=== PATIENT | male | born 1950 | race Caucasian/White ===

== ENCOUNTER 2022-12-17 18:07 | Emergency (ER) | payer OTHER, MEDICARE, SELFPAY ==
--- NOTE | ~2022-12-17 | CT_ITS ---
EXAMINATION: CT HEAD WITHOUT CONTRAST CLINICAL INFORMATION: Headache status-post injury. COMPARISON: None available. TECHNIQUE: Contiguous axial imaging was performed from the skull base to vertex without intravenous administration of contrast. Multiplanar reformatted images are submitted. This CT examination was performed using dose optimization techniques as appropriate, variously including the following: *Automated exposure control *Adjustment of mA and/or kV according to patient size (this includes techniques or standardized protocols for targeted exams where dose is matched to indication/reason for exam; i.e. extremities or head) *Use of iterative reconstruction technique DLP: 1664 mGy-cm (head and cervical spine) FINDINGS: There is no acute intracranial hemorrhage or evidence of territorial infarction. No abnormal mass effect or midline shift is seen. Cantor to white matter differentiation is well preserved. There is no abnormal attenuation within the brain parenchyma. The ventricles are normal in size. There is generalized sulcal widening, commensurate with advanced age. No extra-axial fluid collections are identified. The calvarium and scalp soft tissues are normal. The middle ear cavities and right mastoid air cells are clear. There is fluid within one of the lateral left mastoid air cells. There is opacification of the right mastoid sinus. There has been a prior right median antrostomy. There is hyperostosis of the right maxillary normal lopez, consistent with chronic inflammatory change. There is mild mucosal thickening of the left sphenoid sinus, which shows similar hyperostosis. CT/CT cervical spine wo IV con IMPRESSION: 1. No acute intracranial pathology. 2. There is chronic sinusitis. EXAMINATION: CT CERVICAL SPINE WITHOUT CONTRAST CLINICAL INFORMATION: Pain status-post fall. COMPARISON: None available. TECHNIQUE: Contiguous axial imaging was performed through the cervical spine without intravenous administration of contrast. Multiplanar reformatted images are submitted. This CT examination was performed using dose optimization techniques as appropriate, variously including the following: *Automated exposure control *Adjustment of mA and/or kV according to patient size (this includes techniques or standardized protocols for targeted exams where dose is matched to indication/reason for exam; i.e. extremities or head) *Use of iterative reconstruction technique DLP: As above FINDINGS: Vertebral body heights and alignment are normal. There is mild posterior disc space narrowing at C4-C5. There is marked disc space narrowing at C6-C7. The remaining disc spaces are well-maintained. No acute fracture or spondylolisthesis is seen. There is multi-level cervical spondylosis. The posterior elements are intact. There is multi-level cervical facet arthropathy. There is no prevertebral soft tissue swelling. The dens is intact. There are arthritic changes of the atlantoaxial joint. The bilateral lung apices are clear. IMPRESSION: 1. There is mild degenerative disc disease at C4-C5, and marked degenerative disc disease is seen at C6-C7. 2. There is multi-level cervical spondylosis and facet arthropathy. Fleischner guidelines were followed.
--- NOTE | ~2022-12-17 | CT_ITS ---
EXAMINATION: CT FACIAL BONES WITHOUT CONTRAST CLINICAL INFORMATION: Right facial pain status-post injury. COMPARISON: None available. TECHNIQUE: Without the addition of intravenous contrast, multiple contiguous multidetector transaxial sections are obtained through the facial bones. Multiplanar reformatted images are submitted. This CT examination was performed using dose optimization techniques as appropriate, variously including the following: *Automated exposure control *Adjustment of mA and/or kV according to patient size (this includes techniques or standardized protocols for targeted exams where dose is matched to indication/reason for exam; i.e. extremities or head) *Use of iterative reconstruction technique DLP: 1664 mGy-cm FINDINGS: The paranasal sinuses are well-developed. The frontal sinuses and bilateral ethmoid air cells appear clear. The frontoethmoidal recesses are patent. The right maxillary sinus is fully opacified. There is hyperostosis of the right maxillary sinus wall, suggesting chronic inflammation, and there has been a prior right median antrostomy. There is some narrowing of the right nasal air column. The left ostiomeatal unit appears patent (21:81), and the left nasal air column is patent. There is mild mucosal thickening of the left sphenoid sinus chamber, with widening of the sphenoethmoidal recess possibly on the basis of prior surgery. Please correlate with patient's past surgical history. There is hyperostosis of the lopez of the left sphenoid sinus, similar suggesting chronic sinusitis. No fracture is seen. The bilateral zygomas are intact. The lamina papyracea are intact. The bilateral pterygoid plates are intact. The nasal bones and the nasal septum and vomer are intact. The bilateral orbits and orbital contents are symmetric. The right mastoid air cells are clear. There is fluid within a few of the lateral left mastoid air cells. The external auditory canals are patent bilaterally. The temporomandibular joints are intact. CT/CT facial bones wo IV con IMPRESSION: 1. No acute fracture or dislocation is seen. 2. There is evidence of chronic sinusitis and postoperative intervention to the right maxillary and left sphenoid sinuses. Please correlate with the patient's past surgical history. 3. There is nonspecific fluid within a few of the lateral left mastoid air cells.
[2022-12-17 18:25] VITALS: BP 100/60; BP 83/50; PULSE 70; PULSE 81; RESP 18; TEMP 36.8; O2SAT 95; O2SAT 96; BMI 32.4
--- NOTE | 2022-12-17 18:34 | ECG_ITS ---
Test Reason : LOW BP Blood Pressure : / mmHG Vent. Rate : 079 BPM Atrial Rate : 079 BPM P-R Int : 216 ms QRS Dur : 104 ms QT Int : 398 ms P-R-T Axes : 085 016 066 degrees QTc Int : 456 ms Sinus rhythm with 1st degree A-V block Otherwise normal ECG No previous ECGs available Referred By: Veronica An Electronically Signed By:LAURIE MAURER
--- NOTE | 2022-12-17 18:47 | ED_ITS ---
HPI - Fall General Chief Complaint: Fall Stated Complaint: mowing lawn, lost balance & fell, skin tears L arm Time Seen by Provider: 12/17/22 18:36 Source: patient and RN notes reviewed Mode of arrival: ambulatory Limitations: no limitations History of Present Illness HPI Narrative: This is a 72-year-old male, with a past medical history of insulin dependent diabetes, hypertension, high cholesterol, presenting to the emergency department with complaints dizziness after striking his head on the stump today. Patient states that he was walking in his lawn and fell on uneven ground and fell forward. He struck his right side of his face on a stump. He denies loss of consciousness. He endorses dizziness. Reporting some mild left arm pain with abrasions noted. He called the ambulance where his point of care was found to be at 60, he was given 4 g of D10. No other complaints or concerns at this time. MD complaint: fall Onset (ago): minute(s) Fall from: standing Fall witnessed: no Place fall occurred: home Loss of consciousness: none Prolonged down time: no Symptoms prior to fall: none Context: tripped/slipped Location of injury: head Associated symptoms (after fall): headache and lightheaded Related Data Allergies Allergy/AdvReac Type Severity Reaction Status Date / Time No Known Allergies Allergy Verified 12/17/22 18:28 Review of Systems 2 Review of Systems: Yes all other systems are reviewed and are negative Constitutional: Constitutional: Reports as per [facility] Social History Social History Smoked in Last 30 Days: No Advance Directives: No Advance Directives Information Provided: Yes Physical Exam 2 Vital Signs: Vital Signs: Last Vital Signs Temp 98.1 F 12/18/22 00:25 Pulse 75 12/18/22 00:36 Resp 14 12/18/22 00:25 BP 114/60 12/18/22 00:36 Pulse Ox 95 12/18/22 00:25 O2 Del Method Room Air 12/18/22 00:25 BMI result Body Mass Index 32.4 Const: General: cooperative, comfortable and no acute distress O rientation/consciousness: patient oriented x3 Limitations: no limitations HEENT: Other: Mild superficial abrasion noted to right forehead, no active bleeding. No hemotympanum noted. No facial bone tenderness Head: Yes normal to inspection, Yes normocephalic, No Rothman's sign and No palpable skull fracture Ears: hearing grossly normal bilaterally General nose exam: Normal external nose present Face and sinus: Yes normal facial exam Mouth: Normal oral and palatal mucosa present, oropharynx normal and moist mucous membranes Throat: Yes posterior oropharynx normal Eyes: General: appearance normal, both eyes and all related structures E yelids: Yes eyelids normal Conjunctivae: conjunctivae normal Sclerae: s clerae normal Pupils: Equal, round and reactive pupils present EOM: EOMs intact bilaterally Neck: Neck: Yes normal visual inspection, Yes full ROM and Yes no lymphadenopathy Lymphatic: no lymphadenopathy noted Chest: Chest palpation & inspection: normal inspection of the chest Resp: Effort & Inspection: normal respiratory effort and able to speak in complete sentences Auscultation: clear to auscultation bilaterally, no crackles, no rales, no rhonchi and no wheezes Cardio: Rate: regular rate Rhythm: regular rhythm Heart sounds: S1 normal heart sound present and S2 normal heart sound present GI: Inspection: Yes normal to inspection Skin: General skin exam: no rashes or lesions noted Trauma: no lacerations or abrasions Wounds: no wounds Neuro: General: patient oriented x3 and moves all extremities Cranial nerves: Yes Equal, round and reactive pupils present Extrem: General: Yes normal to inspection Right upper extremity: normal to inspection Left upper extremity: normal to inspection Right lower extremity: normal to inspection Left lower extremity: normal to inspection Course Reevaluation(s) Reevaluation #1: Cervical CT scan without any acute fractures. Head CT and facial CT without any acute abnormalities. Blood glucose 62 and was given juice, now 82. Given clearance of imaging, will provide patient with food as patient states he has not eaten since this morning. Time: 20:43 Reevaluation #2: Patient feeling much better, point of care glucose 164. Dizziness has improved, only feeling nauseous with a slight headache. Patient medicated with Tylenol 1 g by mouth and Zofran. Patient given strict return precautions. Patient understands and agrees with plan. Patient stable for discharge. Time: 00:53 Medications Administered Discontinued Medications Generic Name Dose Route Start Last Admin Trade Name Freq PRN Reason Stop Dose Admin Acetaminophen 975 mg 12/18/22 00:44 12/18/22 01:09 Acetaminophen 325 Mg Tablet PO 12/18/22 00:45 Not Given ONCE ONE Acetaminophen 975 mg 12/18/22 00:53 12/18/22 01:35 Acetaminophen 325 Mg Tablet PO 12/18/22 00:54 975 mg ONCE ONE Administration Bacitracin 1 appl 12/17/22 23:25 12/18/22 01:10 Bacitracin Oint 0.9 Gm Packet TOPICAL 12/17/22 23:26 1 appl ONCE ONE Administration Protocol Diphtheria/Tetanus/Acell Pertussis 0.5 ml 12/18/22 00:56 12/18/22 01:35 Diphth,Pertus(Acell),Tet Adult 0.5 Ml Syringe IM 12/18/22 00:57 0.5 ml .ONCE ONE Administration Ondansetron HCl 4 mg 12/18/22 00:44 12/18/22 01:09 Ondansetron Odt 4 Mg Tab.Rapdis TRANSLINGU 12/18/22 00:45 Not Given ONCE ONE Ondansetron HCl 4 mg 12/18/22 00:53 12/18/22 01:35 Ondansetron Odt 4 Mg Tab.Rapdis TRANSLINGU 12/18/22 00:54 4 mg ONCE ONE Administration Potassium Chloride 40 meq 12/17/22 20:44 12/17/22 21:46 Potassium Chloride Er 20 Meq Tab.Er.Prt PO 12/17/22 20:45 40 meq ONCE ONE Administration Medical Decision Making Medical Decision Making [facility] Narrative: 72-year-old male presenting to the emergency department for evaluation of headache in dizziness status post mechanical fall which occurred today. On arrival, blood pressure hypotensive at 83/50, all other vital signs within normal limits. Patient was transported here via EMS where his point of care was found to be at 60, EMS gave him 4 g of D10. POC on arrival 138. Patient reporting continued dizziness and headache, no neck pain. Patient has superficial abrasion noted to right forehead. Given dizziness and head strike, will obtain head CT and neck CT stat. Patient is neurologically intact at this time. Will reassess after receiving images. Differential Diagnosis Differential Diagnoses: The differential diagnosis associated with the presentation includes ICH, closed head injury, contusion, facial fracture Admission/Observation Consideration of admission/observation: Escalation of care including admission/observation considered Patient would have been admitted to the hospital had her work up had any findings where hospital admission was appropriate and her clinical presentation warranted hospital admission. Lab Data [facility] Lab Attestation statement: I reviewed the patient's lab results. No leukocytosis, chemistry nondiagnostic. Normocytic anemia noted 12/17/22 18:50 12/17/22 18:50 Labs: Lab Results 12/17/22 12/17/22 Range/Units 18:50 19:35 WBC 8.7 (4.8-10.8) X10*3/uL RBC 4.09 L (4.60-5.80) X10*6/uL Hgb 13.2 L (14.0-18.0) g/dl Hct 37.6 L (42.0-52.0) % MCV 91.9 (80.0-98.0) fL MCH 32.3 (27.0-33.0) pg MCHC 35.1 (31.0-36.0) g/dl RDW 13.9 (11.0-16.0) % Plt Count 117 L (160-400) X10*3/uL MPV 9.6 (9.4-12.4) fL Immature Gran % (Auto) 0.2 (0.0-0.4) % Neut % (Auto) 66.8 (45-73) % Lymph % (Auto) 19.9 L (20-40) % [place] % (Auto) 10.6 (2-11) % Eos % (Auto) 2.3 (0-4) % Baso % (Auto) 0.2 (0-2) % Lymph # (Auto) 1.7 (1.2-4.9) X10*3/uL [place] # (Auto) 0.9 (0.1-1.2) X10*3/uL Eos # (Auto) 0.2 (0.0-0.4) X10*3/uL Baso # (Auto) 0.0 (0.0-0.2) X10*3/uL Abs Immat Gran (auto) 0.02 (0.00-0.03) X10*3/uL Absolute Neuts (auto) 5.8 (2.0-8.3) x10*3/uL Absolute Nucleated RBC 0.000 (0.0-0.012) X10*3/uL Nucleated RBC % (auto) 0.0 (0.0-0.2) /100WBC Sodium 141 (135-145) mmol/L Potassium 3.0 L (3.3-5.1) mmol/L Chloride 107 (96-108) mmol/L Carbon Dioxide 26 (22-29) mmol/L Anion Gap 11 L (12-20) BUN 18 H (9-16) mg/dL Creatinine 1.40 (0.5-1.4) mg/dL Estim Creat Clear Calc 57.1 Estimated GFR 50 POC Glucose 63 (60-115) mg/dL Random Glucose 81 (60-115) mg/dL Calcium 8.7 (8.4-10.2) mg/dL Total Bilirubin 0.5 (0.0-1.0) mg/dL Direct Bilirubin 0.2 (0.0-0.5) mg/dL AST 11 (5-37) U/L ALT 13 (0-40) U/L Alkaline Phosphatase 111 (39-117) U/L Troponin I High Sens 7.5 (<3.5-35.0) ng/L Total Protein 5.9 L (6.5-8.0) g/dL Albumin 3.3 L (3.5-5.0) g/dL Radiology Impression Discussion of test interpretation with radiology: I have reviewed the radiologist's reading. Radiologist Impression: EXAMINATION: CT HEAD WITHOUT CONTRAST CLINICAL INFORMATION: Headache status-post injury. COMPARISON: None available. TECHNIQUE: Contiguous axial imaging was performed from the skull base to vertex without intravenous administration of contrast. Multiplanar reformatted images are submitted. This CT examination was performed using dose optimization techniques as appropriate, variously including the following: *Automated exposure control *Adjustment of mA and/or kV according to patient size (this includes techniques or standardized protocols for targeted exams where dose is matched to indication/reason for exam; i.e. extremities or head) *Use of iterative reconstruction technique DLP: 1664 mGy-cm (head and cervical spine) FINDINGS: There is no acute intracranial hemorrhage or evidence of territorial infarction. No abnormal mass effect or midline shift is seen. Cantor to white matter differentiation is well preserved. There is no abnormal attenuation within the brain parenchyma. The ventricles are normal in size. There is generalized sulcal widening, commensurate with advanced age. No extra-axial fluid collections are identified. The calvarium and scalp soft tissues are normal. The middle ear cavities and right mastoid air cells are clear. There is fluid within one of the lateral left mastoid air cells. There is opacification of the right mastoid sinus. There has been a prior right median antrostomy. There is hyperostosis of the right maxillary normal lopez, consistent with chronic inflammatory change. There is mild mucosal thickening of the left sphenoid sinus, which shows similar hyperostosis. CT/CT head/brain wo IV con IMPRESSION: 1. No acute intracranial pathology. 2. There is chronic sinusitis. EXAMINATION: CT CERVICAL SPINE WITHOUT CONTRAST CLINICAL INFORMATION: Pain status-post fall. COMPARISON: None available. TECHNIQUE: Contiguous axial imaging was performed through the cervical spine without intravenous administration of contrast. Multiplanar reformatted images are submitted. This CT examination was performed using dose optimization techniques as appropriate, variously including the following: *Automated exposure control *Adjustment of mA and/or kV according to patient size (this includes techniques or standardized protocols for targeted exams where dose is matched to indication/reason for exam; i.e. extremities or head) *Use of iterative reconstruction technique DLP: As above FINDINGS: Vertebral body heights and alignment are normal. There is mild posterior disc space narrowing at C4-C5. There is marked disc space narrowing at C6-C7. The remaining disc spaces are well-maintained. No acute fracture or spondylolisthesis is seen. There is multi-level cervical spondylosis. The posterior elements are intact. There is multi-level cervical facet arthropathy. There is no prevertebral soft tissue swelling. The dens is intact. There are arthritic changes of the atlantoaxial joint. The bilateral lung apices are clear. IMPRESSION: 1. There is mild degenerative disc disease at C4-C5, and marked degenerative disc disease is seen at C6-C7. 2. There is multi-level cervical spondylosis and facet arthropathy. Fleischner guidelines were followed. Dictated By: Wiliam Sorensen MD External Record Review External record reviewed: Inpatient record, Office record, Outpatient record, Prior outpatient labs, Prior outpatient radiology, Primary care record and Outside ED record Discharge Plan Discharge Clinical Impression: CHI (closed head injury), Abrasion Patient Disposition: Home, Self-Care Instructions: Head Injury (ED) Additional Instructions: Your head CT did not show any new findings. You do have arthritis seen in your neck. There were no facial bone fractures. You likely will be more sore tomorrow, please take Tylenol as needed for your pain. Rest, drink plenty of fluids, and monitor your glucose closely. You also have multiple skin tears and abrasions to your left upper arm, please allow Steri-Strips to fall off on their own. Watch for any signs of infection including but not limited to fevers, chills, or drainage. We updated your tetanus shot in the department today. If any new or worsening symptoms occur including but not limited to chest pain, shortness breast, worsening headache, numbness tingling her weakness, please return for re-evaluation. Interventions: ED Discharge Assessment Last Done: 12/18/22 02:40 Discharge Date/Time: 12/18/22 02:42
[2022-12-17 18:56] LABS: MANUAL DIFF FLAG NO
[2022-12-17 18:58] LABS: Basophils Percent Auto 0.2 % (0-2); Eosinophils Absolute Auto 0.2 X10*3/uL (0.0-0.4); Eosinophils Percent Auto 2.3 % (0-4); Hematocrit 37.6 % (42.0-52.0); Hemoglobin 13.2 g/dl (14.0-18.0); Imm Gran Abs Auto 0.02 X10*3/uL (0.00-0.03); Imm Gran Pct Auto 0.2 % (0.0-0.4); Lymphocytes Absolute Auto 1.7 X10*3/uL (1.2-4.9); Lymphocytes Percent Auto 19.9 % (20-40); Mean Corpuscular HGB Conc 35.1 g/dl (31.0-36.0); Mean Corpuscular Hemoglobin 32.3 pg (27.0-33.0); Mean Corpuscular Volume 91.9 fL (80.0-98.0); Mean Platelet Volume 9.6 fL (9.4-12.4); Monocytes Absolute Auto 0.9 X10*3/uL (0.1-1.2); Monocytes Percent Auto 10.6 % (2-11); Neutrophils Absolute Auto 5.8 x10*3/uL (2.0-8.3); Neutrophils Percent Auto 66.8 % (45-73); Platelet Count 117 X10*3/uL (160-400); Red Blood Count 4.09 X10*6/uL (4.60-5.80); Red Cell Distribution Width 13.9 % (11.0-16.0); White Blood Count 8.7 X10*3/uL (4.8-10.8)
--- NOTE | 2022-12-17 19:13 | PC.NURSE ---
Pt arrived via ambulance, reporting he tripped and fell in his yard today, hitting his head on a stump in the yard. Pt reports he takes a baby aspirin daily small abrasion noted on right side of head, and skin tears noted on Left arm, currently wrapped by EMS. Pt placed on entry level paralegal, BP still soft, 1L running of NS. Pt is a/ox4, reporting dizziness/BRIONES currently.
[2022-12-17 19:15] LABS: Alanine Aminotransferase 13 U/L (0-40); Albumin Level 3.3 g/dL (3.5-5.0); Alkaline Phosphatase 111 U/L (39-117); Anion Gap 11 (12-20); Aspartate Amino Transferase 11 U/L (5-37); Bilirubin Direct 0.2 mg/dL (0.0-0.5); Bilirubin Total 0.5 mg/dL (0.0-1.0); Blood Urea Nitrogen 18 mg/dL (9-16); Calcium 8.7 mg/dL (8.4-10.2); Carbon Dioxide 26 mmol/L (22-29); Chloride 107 mmol/L (96-108); Creatinine Clr Calc Pharmacy 57.1; Estimated Glomerular Filt Rate 50; Glucose Random 81 mg/dL (60-115); Sodium 141 mmol/L (135-145); Total Protein 5.9 g/dL (6.5-8.0)
[2022-12-17 19:22] LABS: Troponin-I High Sensitivity 7.5 ng/L (<3.5-35.0)
[2022-12-17 19:42] LABS: Glucose, Whole Blood 63 mg/dL (60-115)
--- NOTE | 2022-12-17 19:44 | PC.NURSE ---
POC 63, BONITA Martin made aware, pt given OJ. rerts feeling a little dizzy. Otherwise comfortable.
[2022-12-17 19:52] VITALS: BP 107/51; PULSE 77; RESP 12; TEMP 36.7; O2SAT 97
--- NOTE | 2022-12-17 21:24 | MHC.EDTECH ---
Patient was giving a turkey sandwich and a can of gingerale, Patient is eating at this time and call rothman within reach
[2022-12-17 21:26] VITALS: BP 110/58; PULSE 74; RESP 18; TEMP 36.6; O2SAT 98
--- NOTE | 2022-12-17 21:27 | MHC.EDTECH ---
Houtly rounds and vitals completed, patient is eating at this time.
[2022-12-17] MEDS: Potassium Chloride ER 20 MEQ TAB.ER.PRT 40 MEQ PO (21:46)
[2022-12-18 00:25] VITALS: BP 118/66; PULSE 69; RESP 14; TEMP 36.7; O2SAT 95
[2022-12-18 00:35] VITALS: BP 112/57; PULSE 75
[2022-12-18 00:36] VITALS: BP 114/60; BP 127/68; PULSE 69; PULSE 75
[2022-12-18] MEDS: Bacitracin Oint 0.9 GM PACKET 1 APPL TOPICAL (01:10)
[2022-12-18] MEDS: Acetaminophen 325 MG TABLET 975 MG PO (01:35)
[2022-12-18] MEDS: Ondansetron ODT 4 MG TAB.RAPDIS TRANSLINGU (01:35)
[2022-12-18] MEDS: Diphth,Pertus(ACell),Tet Adult 0.5 ML SYRINGE IM (01:35)
== END 2022-12-18 02:42 | disposition home or self-care (01) ==
PROVIDERS: Physician Assistant Medical; Emergency Provider Emergency Medicine; PCP Internal Medicine
DX: S09.90XA Unspecified injury of head, initial encounter (principal); S00.81XA Abrasion of other part of head, initial encounter; W17.2XXA Fall into hole, initial encounter; E11.9 Type 2 diabetes mellitus without complications; I10 Essential (primary) hypertension; E78.5 Hyperlipidemia, unspecified; Y93.H2 Activity, gardening and landscaping; Y92.017 Garden or yard in single-family (private) house as the place of occurrence of the external cause; Y99.9 Unspecified external cause status; Z79.4 Long term (current) use of insulin
CPT/HCPCS: 36415; 70450; 70486; 72125; 80048; 80076; 82947; 84484; 85025; 90471; 90715; 93005; 99284; 99285

== ENCOUNTER 2023-05-18 23:41 | Inpatient (IN) | payer OTHER, MEDICARE, SELFPAY ==
--- NOTE | ~2023-05-18 | CT_ITS ---
EXAMINATION: CT head/brain wo IV con, CT cervical spine wo IV con INDICATION INFORMATION: Reason for Exam Fall COMPARISON: CT head and cervical spine 12/17/2022 TECHNIQUE: Separate noncontrast CT examinations of the head and cervical spine were performed. Coronal and sagittal images were created for each examination at the technologist workstation. This CT examination was performed using dose optimization techniques as appropriate, variously including the following: *Automated exposure control *Adjustment of mA and/or kV according to patient size (this includes techniques or standardized protocols for targeted exams where dose is matched to indication/reason for exam; i.e. extremities or head) *Use of iterative reconstruction technique DLP: 1421 mGy-cm FINDINGS: Head: Mild generalized parenchymal volume loss. Patchy periventricular and deep white matter hypoattenuation is nonspecific but likely reflects sequelae of mild chronic microangiopathy. 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 No territorial loss of brady-white differentiation. Intracranial calcific atherosclerosis. No acute intracranial hemorrhage or extra-axial fluid collection. No mass lesion, significant mass effect, or herniation pattern. Lens replacements. Complete opacification of the right maxillary sinus with patchy hyperdense contents that may reflect proteinaceous/inspissated debris with possible fungal elements with associated chronic osteitis of the sinus lopez. There is also osteitis of the bilateral sphenoid sinus lopez and prior left-sided sphenoidotomy with mild mucosal disease in the left sphenoid sinus. Redemonstrated defect within the upper aspect of the bony nasal septum. 1.1 cm polypoid soft tissue within the posterior left nasal cavity interposed between the nasal septum and middle nasal turbinate can be correlated with direct inspection. Single opacified left mastoid air cell. Osseous structures are intact. Cervical spine: No prevertebral soft tissue swelling. The craniocervical junction is intact. No acute osseous injury. The vertebral body heights are maintained. No traumatic malalignment. Multilevel cervical spondylosis with apparent mild spinal canal narrowing and suspected mass effect along the ventral cord, particularly from a central disc osteophyte protrusion at C3-C4. Normal appearance of the paraspinal soft tissues. Visualized lung apices are clear. Normal appearance of the thyroid gland. CT/CT cervical spine wo IV con IMPRESSION: 1. No CT evidence of acute intracranial injury. 2. 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 3. Stable complete hyperdense opacification of the right maxillary sinus with sclerotic wall thickening. Redemonstrated 1.1 cm polypoid soft tissue in the posterior left nasal cavity that can be correlated with direct inspection. 4. No evidence of acute traumatic injury in the cervical spine.
--- NOTE | ~2023-05-18 | XR_ITS ---
EXAMINATION: XR CHEST CLINICAL INFORMATION: Cough. COMPARISON: None available. TECHNIQUE: Frontal view of the chest was obtained. FINDINGS: The cardiomediastinal silhouette is within normal limits. There has been a prior median sternotomy. There is no focal lung consolidation or pleural effusion. The bony structures and soft tissues are unremarkable. XR/XR chest 1V IMPRESSION: No acute cardiopulmonary disease.
--- NOTE | ~2023-05-18 | XR_ITS ---
EXAMINATION: XR KNEE, RIGHT CLINICAL INFORMATION: Pain. COMPARISON: None available. TECHNIQUE: Four views of the right knee. FINDINGS: The bone mineralization is within normal limits. Meniscal calcifications are noted. There is minimal knee degenerative change with mild osteophyte formation. There is no fracture. There appears to be moderate joint effusion. Numerous soft tissue calcifications are noted. XR/XR knee RT 4V IMPRESSION: 1. No fracture. 2. Moderate joint effusion. 3. Meniscal calcifications. 4. Minimal knee degenerative change.
[2023-05-18 23:53] VITALS: BP 155/62; PULSE 83; RESP 14; TEMP 37.8; O2SAT 96
[2023-05-19] VITALS (8 sets, daily range): BP systolic 130–170; BP diastolic 47–90; PULSE 69–85; RESP 12–22; TEMP 36.5–38.4; O2SAT 93–97; BMI 30.2
--- NOTE | 2023-05-19 | ECG_ITS ---
Test Reason : REPEAT Blood Pressure : / mmHG Vent. Rate : 082 BPM Atrial Rate : 082 BPM P-R Int : 188 ms QRS Dur : 108 ms QT Int : 380 ms P-R-T Axes : 083 012 082 degrees QTc Int : 443 ms Normal sinus rhythm Nonspecific ST and T wave abnormality Abnormal ECG When compared with ECG of 19-MAY-2023 00:28, Nonspecific T wave abnormality now evident in Inferior leads Nonspecific T wave abnormality, worse in Lateral leads Referred By: Nicole Lacy Electronically Signed By:BRENDAN LANG
--- NOTE | 2023-05-19 00:44 | PC.NURSE ---
Pt ca&ox4, no signs of distress. Pt has cervical collar in place. EKG complete. Pt placed on bedside monitor. Pt reports 2/10 rt knee and hip pain. Pt c/o fall prior to fall pt reports feeling dizzy. Vitals stable. Plan of care ongoing.
[2023-05-19 01:21] LABS: MANUAL DIFF FLAG NO
[2023-05-19 01:25] LABS: Basophils Percent Auto 0.3 % (0-2); Eosinophils Percent Auto 0.1 % (0-4); Hematocrit 35.3 % (42.0-52.0); Hemoglobin 12.8 g/dl (14.0-18.0); Imm Gran Abs Auto 0.04 X10*3/uL (0.00-0.03); Imm Gran Pct Auto 0.4 % (0.0-0.4); Lymphocytes Absolute Auto 2.4 X10*3/uL (1.2-4.9); Lymphocytes Percent Auto 22.8 % (20-40); Mean Corpuscular HGB Conc 36.3 g/dl (31.0-36.0); Mean Corpuscular Hemoglobin 32.2 pg (27.0-33.0); Mean Corpuscular Volume 88.9 fL (80.0-98.0); Mean Platelet Volume 10.3 fL (9.4-12.4); Monocytes Absolute Auto 1.1 X10*3/uL (0.1-1.2); Monocytes Percent Auto 10.9 % (2-11); Neutrophils Absolute Auto 6.8 x10*3/uL (2.0-8.3); Neutrophils Percent Auto 65.5 % (45-73); Platelet Count 141 X10*3/uL (160-400); Red Blood Count 3.97 X10*6/uL (4.60-5.80); Red Cell Distribution Width 12.9 % (11.0-16.0); White Blood Count 10.4 X10*3/uL (4.8-10.8)
--- NOTE | 2023-05-19 01:27 | ECG_ITS ---
Test Reason : FALL Blood Pressure : / mmHG Vent. Rate : 079 BPM Atrial Rate : 079 BPM P-R Int : 192 ms QRS Dur : 112 ms QT Int : 412 ms P-R-T Axes : 084 036 078 degrees QTc Int : 472 ms Normal sinus rhythm Nonspecific ST abnormality Abnormal ECG When compared with ECG of 17-DEC-2022 18:41, Nonspecific ST and T wave abnormality present Referred By: Nicole Lacy Electronically Signed By:BRENDAN LANG
[2023-05-19] MEDS: Acetaminophen 325 MG TABLET 975 MG PO (01:30)
[2023-05-19 01:37] LABS: Lactic Acid 0.9 mmol/L (0.5-2.0)
[2023-05-19 01:39] LABS: COVID-19 Test Negative (Negative); IDNOW Serial# 08D9AD1C; IDNOW Serial# 152EDE1D; INTERNATIONAL NORM RATIO 1.3 (0.9-1.1); Influenza A Negative (Negative); Influenza B2 Negative (Negative); Prothrombin Time 15.5 SEC (11.1-13.3)
--- NOTE | 2023-05-19 01:43 | PC.NURSE ---
Provider with pt. EKG completed. Pt medicated per jun. 2nd blood culture completed and sent. Plan of care ongoing.
--- NOTE | 2023-05-19 01:43 | PC.NURSE ---
Pt with CT
--- NOTE | 2023-05-19 01:52 | ED.FALL ---
HPI - Fall General Chief Complaint: Fall Stated Complaint: dizziness Time Seen by Provider: 05/19/23 00:49 Source: patient Mode of arrival: EMS History of Present Illness HPI Narrative: 72-year-old male arrives via EMS from home where he cares for his sister who has Alzheimer's. Patient states that he got up from his chair to go to bed and that he had recently been having pain in the right hip and knee and states that the leg was very painful and he fell with positive head strike but denies any loss of consciousness, states he was unable to get up and even after calling EMS and attempting to just go to bed he was unable to stand even with a cane. He denies any recent illnesses or fevers/chills, denies any nausea/vomiting/abdominal pain and denies any shortness of breath or chest pain. Related Data Allergies Allergy/AdvReac Type Severity Reaction Status Date / Time No Known Allergies Allergy Verified 12/17/22 18:28 Review of Systems Review of Systems: Pertinent positives and negatives as stated in HPI [facility] Past Medical History Source: nursing notes reviewed Social History Social History Smoked in Last 30 Days: Yes Use of substances other than those prescribed or required for medical reasons: No Advance Directives: No Advance Directives Information Provided: Yes Physical Exam Vital Signs: Vital Signs: Last Vital Signs Temp 99.5 F 05/19/23 03:13 Pulse 85 05/19/23 03:13 Resp 16 05/19/23 03:13 BP 130/47 L 05/19/23 03:13 Pulse Ox 94 05/19/23 03:13 O2 Del Method Room Air 05/19/23 03:13 BMI result Body Mass Index 30.2 VITAL SIGNS: Reviewed. GENERAL: Well developed, well nourished, in no acute distress. HEAD: Normocephalic/atraumatic EYES: PERRLA, EOMI EARS: Ext canals without abnormality NOSE: Nares patent bilateral OROPHARYNX: no oral lesions noted, posterior pharynx clear NECK: C-collar without midline cervical spine tenderness to palpation or step-offs noted. LUNGS: Normal breath sounds. No adventitious sounds or accessory muscle use. SpO2<96> CARDIOVASCULAR: Regular rate and rhythm without noted murmurs, no JVD or lower extremity edema. ABDOMEN: Soft, non-tender, non-distended with bowel sounds. PELVIS: Stable, nontender MUSCULOSKELETAL: No tenderness, deformities, or effusions noted on gross inspection. EXTREMITIES: No cyanosis, clubbing or edema. SKIN: Inspection of the skin reveals no rashes NEUROLOGIC: Alert and oriented x 4. Strength and sensation to light touch were grossly intact x 4. Medications Administered Discontinued Medications Generic Name Dose Route Start Last Admin Trade Name Freq PRN Reason Stop Dose Admin Acetaminophen 975 mg 05/19/23 00:57 05/19/23 01:30 Acetaminophen 325 Mg Tablet PO 05/19/23 00:58 975 mg ONCE ONE Administration Piperacillin Sod/Tazobactam 50 mls @ 100 mls/hr 05/19/23 01:57 05/19/23 02:40 Sod 3.375 gm/ Sodium Chloride IV 05/19/23 02:26 100 mls/hr ONCE ONE Administration Potassium Chloride 60 meq 05/19/23 02:31 05/19/23 02:39 Potassium Chloride Er 20 Meq Tab.Er.Prt PO 05/19/23 02:32 60 meq ONCE ONE Administration Medical Decision Making Medical Decision Making MDM Narrative: 72-year-old male with history and clinical presentation, DDX: Mechanical, anemia, infection, electrolyte derangements, intracranial hemorrhage, cervical spine injury.. 0154: Received a call from lab who informs me that potassium-2.5, and glucose-50 and the latter value was communicated with the nursing staff who understands the patient needs to be offered food and juice. I reviewed all investigations and hematologic indices are not significant for leukocytosis/left shift and there is a stable normocytic anemia with chronically stable thrombocytopenia. Coagulation studies are mildly elevated. Chemistry indices not significant for DREA but there is a low potassium with normal magnesium levels and patient was repleted with 4-10 mEq via IV and an additional 60 mEq orally. Repeat glucose-126. Liver enzymes without acute findings, troponin is noted to be elevated but patient has no chest pain complaints. Viral testing negative for COVID-19/influenza. 0249: I discussed with the inpatient hospitalist who accepts admission, 2nd troponin is pending and chest x-ray/urinalysis are pending. Signed out to Dr Edmundo Serrato f/u Trop #2, CXR, UA Differential Diagnosis Differential Diagnoses: The differential diagnosis associated with the presentation includes Please see the discussion above Admission/Observation Consideration of admission/observation: Escalation of care including admission/observation considered Please see the discussion above Consult Healthcare Provider Management of the patient was discussed with: Hospitalist Please see the discussion above Lab Data MDM Lab Attestation statement: I reviewed the patient's lab results. Please see the discussion above 05/19/23 01:13 05/19/23 01:13 Labs: Lab Results 05/19/23 05/19/23 05/19/23 Range/Units 01:13 01:14 02:35 WBC 10.4 (4.8-10.8) X10*3/uL RBC 3.97 L (4.60-5.80) X10*6/uL Hgb 12.8 L (14.0-18.0) g/dl Hct 35.3 L (42.0-52.0) % MCV 88.9 (80.0-98.0) fL MCH 32.2 (27.0-33.0) pg MCHC 36.3 H (31.0-36.0) g/dl RDW 12.9 (11.0-16.0) % Plt Count 141 L (160-400) X10*3/uL MPV 10.3 (9.4-12.4) fL Immature Gran % (Auto) 0.4 (0.0-0.4) % Neut % (Auto) 65.5 (45-73) % Lymph % (Auto) 22.8 (20-40) % [place] % (Auto) 10.9 (2-11) % Eos % (Auto) 0.1 (0-4) % Baso % (Auto) 0.3 (0-2) % Lymph # (Auto) 2.4 (1.2-4.9) X10*3/uL [place] # (Auto) 1.1 (0.1-1.2) X10*3/uL Eos # (Auto) 0.0 (0.0-0.4) X10*3/uL Baso # (Auto) 0.0 (0.0-0.2) X10*3/uL Abs Immat Gran (auto) 0.04 H (0.00-0.03) X10*3/uL Absolute Neuts (auto) 6.8 (2.0-8.3) x10*3/uL Absolute Nucleated RBC 0.000 (0.0-0.012) X10*3/uL Nucleated RBC % (auto) 0.0 (0.0-0.2) /100WBC PT 15.5 H (11.1-13.3) SEC INR 1.3 H (0.9-1.1) Sodium 143 (135-145) mmol/L Potassium 2.5 L* (3.3-5.1) mmol/L Chloride 103 (96-108) mmol/L Carbon Dioxide 29 (22-29) mmol/L Anion Gap 14 (12-20) BUN 10 (9-16) mg/dL Creatinine 1.24 (0.5-1.4) mg/dL Estim Creat Clear Calc 64.2 Estimated GFR 57 POC Glucose 126 H (60-115) mg/dL Random Glucose 50 L* (60-115) mg/dL Lactic Acid 0.9 (0.5-2.0) mmol/L Calcium 8.8 (8.4-10.2) mg/dL Magnesium 1.7 (1.6-2.6) mg/dL Total Bilirubin 0.9 (0.0-1.0) mg/dL AST 22 (5-37) U/L ALT 23 (0-40) U/L Alkaline Phosphatase 99 (39-117) U/L Troponin I High Sens 89.3 H D (<3.5-35.0) ng/L Total Protein 6.5 (6.5-8.0) g/dL Albumin 3.4 L (3.5-5.0) g/dL COVID-19 (NILAM) Negative (Negative) COVID-19 Clin Com See Note Influenza Type A (CB) Negative (Negative) Influenza Type B (CB) Negative (Negative) Influenza A & B Note See Note Independent Interpretation I performed an independent interpretation of an: EKG Interpretation: 0028: Normal sinus rhythm, HR -79, no STEMI, however rhythm consistent with U waves which is consistent with potassium levels 2.5, SD/QTC are within normal limits. 0132: Normal sinus rhythm, HR-82, no STEMI, once again appreciate U waves, SD/QTC is within normal limits. Radiology Impression Discussion of test interpretation with radiology: I have reviewed the radiologist's reading. Radiologist Impression: Please see the discussion above External Record Review External record reviewed: Outpatient record, Prior outpatient labs and Prior outpatient radiology Chronic Conditions Patient?s care impacted by: Diabetes and Hypertension Critical Care Time Critical Care Time Critical Care Time: Yes Total Critical Care Time: 60 Attestation: I personally attest to this time spent taking care of the patient. Discharge Plan Discharge Clinical Impression: Fall, Hypokalemia, Hypoglycemia, Elevated troponin Patient Disposition: Admitted As Inpatient
[2023-05-19 01:53] LABS: Alanine Aminotransferase 23 U/L (0-40); Albumin Level 3.4 g/dL (3.5-5.0); Alkaline Phosphatase 99 U/L (39-117); Anion Gap 14 (12-20); Aspartate Amino Transferase 22 U/L (5-37); Bilirubin Total 0.9 mg/dL (0.0-1.0); Blood Urea Nitrogen 10 mg/dL (9-16); Calcium 8.8 mg/dL (8.4-10.2); Carbon Dioxide 29 mmol/L (22-29); Chloride 103 mmol/L (96-108); Creatinine Clr Calc Pharmacy 64.2; Estimated Glomerular Filt Rate 57; Glucose Random 50 mg/dL (60-115); Potassium 2.5 mmol/L (3.3-5.1); Sodium 143 mmol/L (135-145); Total Protein 6.5 g/dL (6.5-8.0)
--- NOTE | 2023-05-19 01:55 | PC.NURSE ---
BC 50 pt given orange juice and crackers per provider gavino. Plan of care ongoing.
[2023-05-19 02:03] LABS: Troponin-I High Sensitivity 89.3 ng/L (<3.5-35.0)
[2023-05-19 02:07] LABS: Magnesium 1.7 mg/dL (1.6-2.6)
[2023-05-19] MEDS: Potassium Chloride ER 20 MEQ TAB.ER.PRT 60 MEQ PO (02:39)
[2023-05-19] MEDS: Piperacillin Sodium/Tazobactam 3.375 GM in 0.9 % Sodium Chloride 50 ML IV (02:40)
[2023-05-19 02:41] LABS: Glucose, Whole Blood 126 mg/dL (60-115)
--- NOTE | 2023-05-19 03:34 | PC.NURSE ---
Pt with hospitalist. Plan of care ongoing
--- NOTE | 2023-05-19 03:35 | PC.NURSE ---
Report and handoff given to oncoming RN.
[2023-05-19] MEDS: Potassium Chloride/H20 10 MEQ/100 ML PIGGYBACK 100 MEQ IV ×4 (03:39→07:15)
[2023-05-19 03:44] LABS: Troponin-I High Sensitivity 73.4 ng/L (<3.5-35.0)
[2023-05-19 04:07] LABS: Glucose, Whole Blood 251 mg/dL (60-115)
[2023-05-19] MEDS: Insulin Glargine,Hum.rec.anlog 100 UNIT/ML 10 ML VIAL 50 UNIT SUBCUT (04:54)
[2023-05-19 06:24] LABS: Alanine Aminotransferase 21 U/L (0-40); Alkaline Phosphatase 93 U/L (39-117); Anion Gap 15 (12-20); Aspartate Amino Transferase 21 U/L (5-37); Bilirubin Total 0.9 mg/dL (0.0-1.0); Blood Urea Nitrogen 12 mg/dL (9-16); Calcium 8.3 mg/dL (8.4-10.2); Carbon Dioxide 26 mmol/L (22-29); Chloride 102 mmol/L (96-108); Creatinine Clr Calc Pharmacy 54.2; Estimated Glomerular Filt Rate 47; Glucose Random 241 mg/dL (60-115); Potassium 2.8 mmol/L (3.3-5.1); Sodium 140 mmol/L (135-145); Total Protein 5.9 g/dL (6.5-8.0)
[2023-05-19 06:42] LABS: C Reactive Protein 11.57 mg/dL (< or = 0.50)
--- NOTE | 2023-05-19 06:56 | PM.IMHP ---
History of Present Illness Date of Service: 05/19/23 Attending physician on admission: Fawn Kebede Chief Complaint: Fall Adair Rivera is a 72 years old man with past medical history significant for hyperlipidemia, hypertension and type 2 diabetes mellitus presents to the emergency department after he sustained a fall open getting proposed chart to go to bed. He hit his head and complains of right leg weakness and pain. He also complained of right shoulder pain. He denied any dizziness, loss of consciousness or palpitations. He also denied fever or chills. He also tried any chest pain, shortness on breath or cough. He denied vomiting or diarrhea. He denies any gastrointestinal or genitourinary symptoms. Denies history of alcohol abuse, tobacco smoking or illicit drug use. Patient is not sure if he uses diuretics. Patient is a vague historian and was unable to recall the names of his medications. In the ED, he was found to have fever of 101.1. The rest of his vital signs are normal. Blood workup is remarkable for significant hypokalemia of 2.5. His creatinine is elevated at 1.47. He has hyperglycemia. There is mild thrombocytopenia. LFTs are normal. C-reactive protein is mildly elevated at 11.7. CXR is negative. Head CT scan showed no acute intracranial abnormality. C-spine CT scan showed no fracture or dislocations. Right knee x-ray showed no fracture, meniscal calcifications and moderate joint effusions. ED tx: Acetaminophen 975 mg PO, Zosyn 3.325 g IV, potassium 60 mEq PO, KCl 40 mg mEq IV. Review of Systems Review of Systems: All 12 systems were reviewed and normal except as noted in HPI. [facility] Medical History (Updated 05/19/23 @ 07:47 by Fawn Kebede MD) Hyperlipidemia Type 2 acromioclavicular joint separation Social History Smoked in Last 30 Days: Yes Use of substances other than those prescribed or required for medical reasons: No Advance Directives: No Advance Directives Information Provided: Yes Meds Allergies Allergy/AdvReac Type Severity Reaction Status Date / Time No Known Allergies Allergy Verified 12/17/22 18:28 Active Medications: Current Medications Acetaminophen (Acetaminophen 325 Mg Tablet) 650 mg PO Q6H PRN PRN Reason: Headache Bupropion HCl (Bupropion Hcl Xl 150 Mg Tab.Er.24h) 150 mg PO DAILY [facility] Clonazepam (Clonazepam 0.5 Mg Tablet) 0.5 mg PO DAILY [facility] Dextrose (Dextrose 50 % 25 Gm/50 Ml Syringe) 25 gm IVPUSH Q15M PRN; Protocol PRN Reason: per Hypoglycemia Standing Ord. Fludrocortisone Acetate (Fludrocortisone Acetate 0.1 Mg Tablet) 0.1 mg PO BID [facility] Glucose (Glucose Gel 15 Gm Gel..Gram.) 15 gm PO Q15M PRN; Protocol PRN Reason: per Hypoglycemia Standing Ord. Heparin Sodium (Porcine) (Heparin Sodium,Porcine 5,000 Unit/Ml Vial) 5,000 unit SUBCUT Q8H [facility] Potassium Chloride/Sodium Chloride (Kcl 40 Meq In 0.9 % Sodium Chl) 40 meq in 1,000 mls @ 125 mls/hr IVCONT .Q8H [facility] Last Admin: 05/19/23 04:02 Dose: Not Given Insulin Human Lispro (Insulin Lispro 100 Unit/Ml 3 Ml Vial) 0 unit SUBCUT QIDACHS [facility]; Protocol Midodrine (Midodrine Hcl 2.5 Mg Tablet) 2.5 mg PO TID [facility] Sodium Chloride (0.9 % Sodium Chloride Flush 3 Ml Syringe) 3 ml IVFLUSH QSHIFT [facility] Home Medications Medication Instructions Recorded Confirmed Last Taken Type atorvastatin 20 mg tablet 20 mg PO DAILY 05/19/23 Unknown History bupropion HCl 150 mg tablet,12 hr 150 mg PO DAILY 05/19/23 Unknown History sustained-release clonazepam 0.5 mg tablet 0.5 mg PO DAILY 05/19/23 Unknown History divalproex 250 mg tablet,extended 250 mg PO DAILY 05/19/23 Unknown History release 24 hr fludrocortisone 0.1 mg tablet 0.1 mg PO BID 05/19/23 Unknown History midodrine 2.5 mg tablet 2.5 mg PO TID 05/19/23 Unknown History sertraline 100 mg tablet 100 mg PO DAILY 05/19/23 Unknown History Physical Exam Vital Signs and Narrative: Vital Signs: Last Vital Signs Temp 99.5 F 05/19/23 03:13 Pulse 85 05/19/23 03:13 Resp 16 05/19/23 03:13 BP 130/47 L 05/19/23 03:13 Pulse Ox 94 05/19/23 03:13 O2 Del Method Room Air 05/19/23 03:13 BMI result Body Mass Index 30.2 Constitutional - Awake and Alert, No apparent distress. HEENT - Pupils equally round, EOMI Heart - S1S2, RRR. No murmur. Lungs - Normal lung expansion, Normal respiratory effort, No respiratory distress, CTA bilaterally Gastrointestinal - NT / ND; +BS; No rebound or guarding Extremities - Right knee swelling/effusion. No erythema. No wounds. Limited ROM. Skin - Warm/Dry Neurological - Alert & oriented x3. No gross focal weakness. No numbness. Normal speech. Normal behavior. Psychological - Appropriate affect Results Labs 05/19/23 01:13 05/19/23 05:17 Labs: Laboratory Results - last 24 hr 05/19/23 05/19/23 05/19/23 01:13 01:14 02:35 MCV 88.9 MCH 32.2 MCHC 36.3 H RDW 12.9 Plt Count 141 L MPV 10.3 Immature Gran % (Auto) 0.4 Neut % (Auto) 65.5 Lymph % (Auto) 22.8 [place] % (Auto) 10.9 Eos % (Auto) 0.1 Baso % (Auto) 0.3 Lymph # (Auto) 2.4 [place] # (Auto) 1.1 Eos # (Auto) 0.0 Baso # (Auto) 0.0 Abs Immat Gran (auto) 0.04 H Absolute Neuts (auto) 6.8 Absolute Nucleated RBC 0.000 Nucleated RBC % (auto) 0.0 PT 15.5 H INR 1.3 H Anion Gap 14 Estim Creat Clear Calc 64.2 Estimated GFR 57 POC Glucose 126 H Random Glucose 50 L* Lactic Acid 0.9 Calcium 8.8 Magnesium 1.7 Total Bilirubin 0.9 AST 22 ALT 23 Alkaline Phosphatase 99 C-Reactive Protein Total Protein 6.5 Albumin 3.4 L COVID-19 ([facility]ILAM) Negative COVID-19 Clin Com See Note Influenza Type A (CB) Negative Influenza Type B (CB) Negative Influenza A & B Note See Note 05/19/23 05/19/23 04:03 05:17 MCV MCH MCHC RDW Plt Count MPV Immature Gran % (Auto) Neut % (Auto) Lymph % (Auto) [place] % (Auto) Eos % (Auto) Baso % (Auto) Lymph # (Auto) [place] # (Auto) Eos # (Auto) Baso # (Auto) Abs Immat Gran (auto) Absolute Neuts (auto) Absolute Nucleated RBC Nucleated RBC % (auto) PT INR Anion Gap 15 Estim Creat Clear Calc 54.2 Estimated GFR 47 POC Glucose 251 H Random Glucose 241 H Lactic Acid Calcium 8.3 L Magnesium Total Bilirubin 0.9 AST 21 ALT 21 Alkaline Phosphatase 93 C-Reactive Protein 11.57 H Total Protein 5.9 L Albumin 3.0 L COVID-19 (NILAM) COVID-19 Clin Com Influenza Type A (CB) Influenza Type B (CB) Influenza A & B Note Imaging Radiologist's Impressions: Impressions Cervical Spine CT 05/19/23 02:21 IMPRESSION: 1. No CT evidence of acute intracranial injury. 2. 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 3. Stable complete hyperdense opacification of the right maxillary sinus with sclerotic wall thickening. Redemonstrated 1.1 cm polypoid soft tissue in the posterior left nasal cavity that can be correlated with direct inspection. 4. No evidence of acute traumatic injury in the cervical spine. Head CT 05/19/23 02:21 IMPRESSION: 1. No CT evidence of acute intracranial injury. 2. 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 3. Stable complete hyperdense opacification of the right maxillary sinus with sclerotic wall thickening. Redemonstrated 1.1 cm polypoid soft tissue in the posterior left nasal cavity that can be correlated with direct inspection. 4. No evidence of acute traumatic injury in the cervical spine. Chest X-Ray 05/19/23 02:56 IMPRESSION: No acute cardiopulmonary disease. Knee X-Ray 05/19/23 05:25 IMPRESSION: 1. No fracture. 2. Moderate joint effusion. 3. Meniscal calcifications. 4. Minimal knee degenerative change. Assessment and Plan (1) Elevated troponin: Status: Acute (2) Hypokalemia: Status: Acute (3) Fever: Status: Acute (4) Type 2 acromioclavicular joint separation: Status: Acute (5) Hyperlipidemia: Status: Acute Plan Adair Rivera is a 72 years old man admitted with: Hypokalemia, cause unclear (pt is unsure if takes diuretics). Admit to hospitalist service. Telemetry. Continue therapy with KCl IV. Continue to monitor potassium level. Fever. No tachycardia. Monitor blood pressure. No leukocytosis. No lactic acidosis. Etiology unclear. Blood cultures obtained -will follow results. Tick bone disease panel. Right knee effusion. ?Traumatic. Ortho consult. Elevated troponin. EKG showed nonspecific ST and T-waves inferolaterally. Patient denied chest pain. Aspirin. Continue to monitor troponin. s/p fall. PT evaluation. Essential hypertension. Patient stated that he has not taking medication his blood pressure up. Type 2 diabetes mellitus. Blood glucose monitoring (pt has a Dexcon). Insulin sliding scale. Orthostatic hypotension?/adrenal insufficiency. Continue midodrine and fludrocortisone. Hyperlipidemia. Continue statin. Depression and anxiety. Continue home meds. --> will request patient's medical documentation from his primary care physician ([facility]). --> home medications confirmation by pharmacy still pending. DVT prophylaxis: Heparin subQ Code status: Full. Patient really hospitalization for at least 2 midnights for hypokalemia treatment with IV KCl and continuous cardiac monitoring. Quality Stroke Does the patient have a stroke diagnosis?: No VTE Prior VTE?: No VTE Risk Level:: Medical - moderate - high VTE Device Contraindication: Treatment Not Indicated VTE Drug Contraindication: N/A - Med Ordered
--- NOTE | 2023-05-19 07:00 | CA_ITS ---
Transthoracic Echocardiogram Patient (Last, First, Middle): Adair Rivera, Gender: Male Date of : 1950 Age: 72 Procedure Date: 05/19/2023 Procedure Type: Transthoracic Echocardiogram Location: ER Height: 182.88 cm Weight: 100.7 kg BSA: 2.23 m2 Heart Rate: bpm BP: 138 / 61 mmHg Recreation Facility Manager: TO Referring MD: Amish Brizuela MD Symptoms: elevated troponins Study Quality: Fair/Contrast ECG Rhythm: Sinus Conclusions: - The left ventricular systolic function is normal. The calculated ejection fraction is 58% by biplane method. - The basal inferior segment is hypokinetic. - No obvious valvular pathology seen on this study. Findings Procedure Information Contrast agent, definity, is being given per protocol without apparent complications. Left Ventricle Normal left ventricular cavity size. There is mildly increased left ventricular wall thickness. The left ventricular systolic function is normal. The calculated ejection fraction is 58% by biplane method. Diastolic function is indeterminate on the basis of available data. LV peak GLS -15.2%. Wall Motion Rest Echo Findings The basal inferior segment is hypokinetic. Right Ventricle Normal right ventricular cavity size and systolic function. Atria Both atria are normal in size. Aortic Valve There is a normal trileaflet aortic valve. There is mild calcification of the aortic valve. There is no aortic valve stenosis. There is no aortic valve regurgitation. Mitral Valve There is mild mitral annular calcification. There is trace mitral valve regurgitation. There is no mitral valve stenosis. Pulmonic Valve There is trace pulmonic valve regurgitation. Tricuspid Valve Normal tricuspid valve structure. There is mild tricuspid valve regurgitation. There is no evidence of pulmonary hypertension. Great Vessels The asc aorta is normal in size. Venous The inferior vena cava is normal in size and collapses greater than 50% with inspiration. Pericardium/Pleural There is no evidence of pericardial effusion. Prior Study Comparison No prior study available for comparison. Recommendations, Care & Conclusions No obvious valvular pathology seen on this study. Measurements 2D Linear Measurements IVSd: 1.27 0.6-0.9/0.6-1.0 cm LVIDd: 4.91 3.9-5.3/4.2-5.9 cm LVIDd Index: 2.20 2.4-3.2/2.2-3.1 cm/m2 LVIDs: 3.62 2.0-3.6 cm LVPWd: 1.08 0.7-1.1 cm LA Diam: 3.80 2.7-3.8/3.0-4.0 cm LAIDs Index: 1.70 1.5-2.3 cm/m2 LV Mass: 274.86 67-162/88-224 g LV Mass Index: 123.25 43-95/49-115 g/m2 LVOT Diam: 2.20 3.0+(-)1.3 cm 2D Systolic Function EF 4C: 57.90 >55% EF 2C: 56.60 >55% EF BiP: 57.70 >55% Mitral Valve MV Pk E: 1.11 MV PK A: 0.97 MV Decel Time: 204.00 E/A: 1.10 E'Lateral: 7.83 E'Medial: 5.22 E/E' Med: 21.30 E/E' Lat: 14.20 PHT: 60.00 MVA PHT: 3.67 Decel [place]: 5.44 Aortic Valve AoV Pk Mehul: 1.38 AoV Mn Mehul: 0.96 AoV VTI: 0.31 AoV Pk Grad: 8.00 Aov Mn Grad: 4.00 CEE Cont.VTI: 2.64 LVOT LVOT Pk Mehul: 0.89 LVOT Mn Mehul: 0.60 LVOT VTI: 0.21 LVOT Pk Grad: 3.00 LVOT Mn Grad: 2.00 LVOT Diam: 2.20 LVOT Area: 3.80 Diastolic Function MV Pk E: 1.11 MV Pk A: 0.97 E/A: 1.10 E'Medial: 5.22 E/E' Med: 21.30 E' Laterial: 7.83 E/E' Lat: 14.20 Right Ventricle TAPSE (mm): 18.60 TVS' Mehul: 10.40 Tricuspid Valve TR Pk Mehul: 2.43 TR Pk Grad: 24.00 RA Press: 8.00 RVSP: 32.00 Great Vessels Aorta Sinus of Valsalva: 3.70 2.0-3.5 cm Ao Asc: 3.80 2.1-3.4 cm Updated in Other Vendor System with Status of Final Amish Brizuela MD electronically signed on 05/19/2023 1:08:36 PM with status of Final
[2023-05-19 07:28] LABS: Glucose, Whole Blood 182 mg/dL (60-115)
[2023-05-19] MEDS: Insulin Lispro 100 UNIT/ML 3 ML VIAL SUBCUT ×2 (07:35→20:57)
--- NOTE | 2023-05-19 08:01 | P.CONOP_ITS ---
History of Present Illness HPI Consult date: 05/19/23 Chief complaint: Hypokalemia Narrative: 72 yo male admitted to the medical service s/p fall and on exam in the ED was found to have Hypokalemia with EKG changes. Also, on admission he c/o right knee pain and there was a concern for an effusion. He denies fever or chills. Denies pain with movement. No history of treatment for the right knee in the past. Review of Systems 2 Review of Systems: per hpi [facility] Past Medical History Medical History (Updated 05/19/23 @ 08:08 by Libra aWng PA-C) Hyperlipidemia Type 2 acromioclavicular joint separation Social History Social History Smoked in Last 30 Days: Yes Use of substances other than those prescribed or required for medical reasons: No Advance Directives: No Advance Directives Information Provided: Yes Meds Allergies Allergy/AdvReac Type Severity Reaction Status Date / Time No Known Allergies Allergy Verified 12/17/22 18:28 Active Medications: Current Medications Acetaminophen (Acetaminophen 325 Mg Tablet) 650 mg PO Q6H PRN PRN Reason: Headache Aspirin (Aspirin Enteric Coated 81 Mg Tablet.Dr) 81 mg PO DAILY [facility] Bupropion HCl (Bupropion Hcl Xl 150 Mg Tab.Er.24h) 150 mg PO DAILY [facility] Clonazepam (Clonazepam 0.5 Mg Tablet) 0.5 mg PO DAILY [facility] Dextrose (Dextrose 50 % 25 Gm/50 Ml Syringe) 25 gm IVPUSH Q15M PRN; Protocol PRN Reason: per Hypoglycemia Standing Ord. Fludrocortisone Acetate (Fludrocortisone Acetate 0.1 Mg Tablet) 0.1 mg PO BID [facility] Glucose (Glucose Gel 15 Gm Gel..Gram.) 15 gm PO Q15M PRN; Protocol PRN Reason: per Hypoglycemia Standing Ord. Heparin Sodium (Porcine) (Heparin Sodium,Porcine 5,000 Unit/Ml Vial) 5,000 unit SUBCUT Q8H [facility] Potassium Chloride/Sodium Chloride (Kcl 40 Meq In 0.9 % Sodium Chl) 40 meq in 1,000 mls @ 125 mls/hr IVCONT .Q8H [facility] Last Admin: 05/19/23 04:02 Dose: Not Given Insulin Human Lispro (Insulin Lispro 100 Unit/Ml 3 Ml Vial) 0 unit SUBCUT QIDACHS [facility]; Protocol Last Admin: 05/19/23 07:35 Dose: 2 unit Midodrine (Midodrine Hcl 2.5 Mg Tablet) 2.5 mg PO TID [facility] Potassium Chloride (Potassium Chloride Packet 20 Meq Packet) 40 meq PO Q2H [facility] Stop: 05/19/23 10:01 Sodium Chloride (0.9 % Sodium Chloride Flush 3 Ml Syringe) 3 ml IVFLUSH QSHIFT [facility] Home Medications Medication Instructions Recorded Confirmed Last Taken Type atorvastatin 20 mg tablet 20 mg PO DAILY 05/19/23 Unknown History bupropion HCl 150 mg tablet,12 hr 150 mg PO DAILY 05/19/23 Unknown History sustained-release clonazepam 0.5 mg tablet 0.5 mg PO DAILY 05/19/23 Unknown History divalproex 250 mg tablet,extended 250 mg PO DAILY 05/19/23 Unknown History release 24 hr fludrocortisone 0.1 mg tablet 0.1 mg PO BID 05/19/23 Unknown History midodrine 2.5 mg tablet 2.5 mg PO TID 05/19/23 Unknown History sertraline 100 mg tablet 100 mg PO DAILY 05/19/23 Unknown History Physical Exam 2 Vital Signs: Vital Signs: Last Vital Signs Temp 97.7 F 05/19/23 07:19 Pulse 71 05/19/23 07:19 Resp 16 05/19/23 07:19 BP 138/61 05/19/23 07:19 Pulse Ox 93 05/19/23 07:19 O2 Del Method Room Air 05/19/23 07:19 BMI result Body Mass Index 30.2 Const: General: cooperative and no acute distress O rientation/consciousness: patient oriented x3 Resp: Effort & Inspection: normal respiratory effort and able to speak in complete sentences Cardio: Peripheral pulses: Peripheral pulses 2+ throughout Neuro: General: patient oriented x3 Extrem: Other: Right knee normal to inspection. No redness or warmth. Mild joint effusion. He has full ROM without pain. NVI. Results Labs 05/19/23 01:13 05/19/23 05:17 Labs: Abnormal lab results 05/19/23 05/19/23 05/19/23 Range/Units 01:13 02:35 03:12 RBC 3.97 L (4.60-5.80) X10*6/uL Hgb 12.8 L (14.0-18.0) g/dl Hct 35.3 L (42.0-52.0) % MCHC 36.3 H (31.0-36.0) g/dl Plt Count 141 L (160-400) X10*3/uL Abs Immat Gran (auto) 0.04 H (0.00-0.03) X10*3/uL PT 15.5 H (11.1-13.3) SEC INR 1.3 H (0.9-1.1) Potassium 2.5 L* (3.3-5.1) mmol/L Creatinine (0.5-1.4) mg/dL POC Glucose 126 H (60-115) mg/dL Random Glucose 50 L* (60-115) mg/dL Calcium (8.4-10.2) mg/dL Troponin I High Sens 89.3 H D 73.4 H (<3.5-35.0) ng/L C-Reactive Protein (< or = 0.50) mg/dL Total Protein (6.5-8.0) g/dL Albumin 3.4 L (3.5-5.0) g/dL 05/19/23 05/19/23 05/19/23 Range/Units 04:03 05:17 07:22 RBC (4.60-5.80) X10*6/uL Hgb (14.0-18.0) g/dl Hct (42.0-52.0) % MCHC (31.0-36.0) g/dl Plt Count (160-400) X10*3/uL Abs Immat Gran (auto) (0.00-0.03) X10*3/uL PT (11.1-13.3) SEC INR (0.9-1.1) Potassium 2.8 L* (3.3-5.1) mmol/L Creatinine 1.47 H (0.5-1.4) mg/dL POC Glucose 251 H 182 H (60-115) mg/dL Random Glucose 241 H (60-115) mg/dL Calcium 8.3 L (8.4-10.2) mg/dL Troponin I High Sens (<3.5-35.0) ng/L C-Reactive Protein 11.57 H (< or = 0.50) mg/dL Total Protein 5.9 L (6.5-8.0) g/dL Albumin 3.0 L (3.5-5.0) g/dL H & H 05/19/23 Range/Units 01:13 Hgb 12.8 L (14.0-18.0) g/dl Hct 35.3 L (42.0-52.0) % Coagulation 05/19/23 Range/Units 01:13 INR 1.3 H (0.9-1.1) All other labs normal. Diagnostic results Knee x-ray: image reviewed (IMPRESSION: 1. No fracture. 2. Moderate joint effusion. 3. Meniscal calcifications. 4. Minimal knee degenerative change.) Assessment and Plan (1) Osteoarthritis of right knee: Qualifiers: Osteoarthritis type: primary Qualified Code(s): M17.11 - Unilateral primary osteoarthritis, right knee Status: Acute Plan Right knee arthritis No evidence of septic arthritis He is diabetic and is not interested in steroid injections Continue to wbat, work on ROM he can f/u outpatient for right knee pain if needed. Procedures Date of Service Date of Service: 05/19/23
[2023-05-19 09:04] LABS: Appearance Urine Clear; Color Urine Yellow; Glucose Urine UA >=1000 mg/dL (Negative); Leukocyte Esterase Urine Negative (Negative); Nitrite Urine Negative (Negative); PH 5.5 (5.0-9.0); Specific Gravity - Urine >= 1.030 (1.005-1.025); UMIC TRIGGER UA YES; UMIC TRIGGER UACC YES; Urine Blood Negative (Negative); Urine Ketones Trace mg/dL (Negative); Urine Protein 100 (2+) mg/dL (Neg-Trace)
[2023-05-19 09:09] LABS: Bacteria Urine None Seen (None Seen); Hyaline Casts Urine 0-2 /LPF (0-2); RBC Urine 0-2 /HPF (0-2); Squamous Epithelial Cell Urine 0-2 /HPF (0-2); WBC Urine 0-5 /HPF (0-5)
[2023-05-19] MEDS: Fludrocortisone Acetate 0.1 MG TABLET PO ×2 (09:35→20:57)
[2023-05-19] MEDS: clonazePAM 0.5 MG TABLET PO (09:36)
[2023-05-19] MEDS: Midodrine HCl 2.5 MG TABLET PO ×3 (09:36→20:57)
[2023-05-19] MEDS: Heparin Sodium,Porcine 5,000 UNIT/ML VIAL 5000 UNIT SUBCUT ×3 (09:36→23:35)
[2023-05-19] MEDS: buPROPion HCl XL 150 MG TAB.ER.24H PO (09:36)
[2023-05-19] MEDS: 0.9 % Sodium Chloride Flush 3 ML SYRINGE IVFLUSH ×2 (09:36→17:14)
[2023-05-19] MEDS: Potassium Chloride Packet 20 MEQ PACKET 40 MEQ PO ×3 (09:40→15:41)
[2023-05-19] MEDS: Aspirin Enteric Coated 81 MG TABLET.DR PO (09:40)
--- NOTE | 2023-05-19 09:55 | PC.NURSE ---
alert and oriented, respirations even and unlabored. remains nsr on monitor, last bag of potassium infusing at this time. medicated per the MAR. offering no complaints at this time, call rothman remains within reach.
--- NOTE | 2023-05-19 10:31 | PM.CNCAR ---
History of Present Illness History of Present Illness Date of Service: 05/19/23 Chief complaint: Hypokalemia Narrative: This is a cardiology consultation regarding elevated troponins. Patient states he generally goes to the DC for his care. He has a history of coronary artery bypass surgery more than 20 years ago. However, does not see Cardiology regularly. Current admissions because of fall. It seems that he was trying to get into bed and in that context, somehow fell. No clear syncopal episodes. No chest pains or in fact any cardiac symptoms. Labs show hypokalemia and some elevation of troponins. EKG with some ST depression. Hence we are asked to see in consultation. Patient states that he is generally okay and does not really have any symptoms like angina. He does not have anything at this time either. He states he feels okay. Review of Systems Review of Systems: Yes all other systems are reviewed and are negative Constitutional: Constitutional: Reports as per HPI and Reports no additional constitutional complaints Eyes: Eyes: Reports as per HPI and Denies no additional eye complaints ENT: Denies system reviewed and no additional complaints, except as documented and Reports as per HPI Cardiovascular: Cardiovascular: Reports as per HPI, Reports no additional cardiovascular complaints, Denies acrocyanosis, Denies cool extremities, Denies chest pain, Denies leg edema, Denies lightheadedness, Denies palpitations and Denies dyspnea Respiratory: Respiratory: Reports as per HPI, Denies no additional respiratory complaints and Denies dyspnea Gastrointestinal: Gastrointestinal: Reports as per HPI and Denies no additional gastrointestinal complaints Genitourinary: Genitourinary: Reports no additional male genitourinary complaints and Reports as per HPI Musculoskeletal: Musculoskeletal: Reports no additional musculoskeletal complaints and Reports as per HPI Integumentary/Breasts: Skin/Breast: Reports system reviewed and no additional complaints, except as docu Neurologic: Reports system reviewed and no additional complaints, except as documented and Reports as per HPI Psychiatric: Psychiatric: Reports no additional psychiatric complaints and Reports as per HPI Endocrine: Endocrine: Reports no additional endocrine complaints, Reports as per HPI and Denies palpitations Hematologic/Lymphatic: Hematologic/Lymphatic: Reports no additional hematologic/lymphatic complaints and Reports as per HPI Allergic/Immunologic: Allergic/Immunologic: Reports no additional allergic/immunologic complaints and Reports as per HPI [facility] Past Medical History Medical History (Updated 05/19/23 @ 10:35 by Amish Brizuela MD) Atherosclerotic cardiovascular disease Hyperlipidemia Type 2 acromioclavicular joint separation Family History Pertinent family history: No pertinent family history Surgical History Surgical History (Updated 05/19/23 @ 10:35 by Amish Brizuela MD) History of coronary artery bypass graft Social History Social History Patient Tobacco Use Status: Tobacco use Unknown Smoked in Last 30 Days: Yes Use of substances other than those prescribed or required for medical reasons: No Advance Directives: No Advance Directives Information Provided: Yes Meds Allergies Allergy/AdvReac Type Severity Reaction Status Date / Time No Known Allergies Allergy Verified 12/17/22 18:28 Active Medications: Current Medications Acetaminophen (Acetaminophen 325 Mg Tablet) 650 mg PO Q6H PRN PRN Reason: Headache Aspirin (Aspirin Enteric Coated 81 Mg Tablet.Dr) 81 mg PO DAILY [facility] Last Admin: 05/19/23 09:40 Dose: 81 mg Bupropion HCl (Bupropion Hcl Xl 150 Mg Tab.Er.24h) 150 mg PO DAILY [facility] Last Admin: 05/19/23 09:36 Dose: 150 mg Clonazepam (Clonazepam 0.5 Mg Tablet) 0.5 mg PO DAILY [facility] Last Admin: 05/19/23 09:36 Dose: 0.5 mg Dextrose (Dextrose 50 % 25 Gm/50 Ml Syringe) 25 gm IVPUSH Q15M PRN; Protocol PRN Reason: per Hypoglycemia Standing Ord. Fludrocortisone Acetate (Fludrocortisone Acetate 0.1 Mg Tablet) 0.1 mg PO BID [facility] Last Admin: 05/19/23 09:35 Dose: 0.1 mg Glucose (Glucose Gel 15 Gm Gel..Gram.) 15 gm PO Q15M PRN; Protocol PRN Reason: per Hypoglycemia Standing Ord. Heparin Sodium (Porcine) (Heparin Sodium,Porcine 5,000 Unit/Ml Vial) 5,000 unit SUBCUT Q8H [facility] Last Admin: 05/19/23 09:36 Dose: 5,000 unit Potassium Chloride/Sodium Chloride (Kcl 40 Meq In 0.9 % Sodium Chl) 40 meq in 1,000 mls @ 125 mls/hr IVCONT .Q8H [facility] Last Admin: 05/19/23 04:02 Dose: Not Given Magnesium Sulfate (Magnesium Sulfate/H2o) 2 gm in 50 mls @ 25 mls/hr IV ONCE ONE Stop: 05/19/23 11:46 Insulin Human Lispro (Insulin Lispro 100 Unit/Ml 3 Ml Vial) 0 unit SUBCUT QIDACHS [facility]; Protocol Last Admin: 05/19/23 07:35 Dose: 2 unit Midodrine (Midodrine Hcl 2.5 Mg Tablet) 2.5 mg PO TID [facility] Last Admin: 05/19/23 09:36 Dose: 2.5 mg Sodium Chloride (0.9 % Sodium Chloride Flush 3 Ml Syringe) [facility] Last Admin: 05/19/23 09:36 Dose: 3 ml Home Medications Medication Instructions Recorded Confirmed Last Taken Type atorvastatin 20 mg tablet 20 mg PO DAILY 05/19/23 Unknown History bupropion HCl 150 mg tablet,12 hr 150 mg PO DAILY 05/19/23 Unknown History sustained-release clonazepam 0.5 mg tablet 0.5 mg PO DAILY 05/19/23 Unknown History divalproex 250 mg tablet,extended 250 mg PO DAILY 05/19/23 Unknown History release 24 hr fludrocortisone 0.1 mg tablet 0.1 mg PO BID 05/19/23 Unknown History midodrine 2.5 mg tablet 2.5 mg PO TID 05/19/23 Unknown History sertraline 100 mg tablet 100 mg PO DAILY 05/19/23 Unknown History Physical Exam Vital Signs: Vital Signs: Last Vital Signs Temp 97.7 F 05/19/23 07:19 Pulse 71 05/19/23 07:19 Resp 16 05/19/23 07:19 BP 138/61 05/19/23 07:19 Pulse Ox 93 05/19/23 07:19 O2 Del Method Room Air 05/19/23 07:19 BMI result Body Mass Index 30.2 Const: General: comfortable and no acute distress Orientation/consciousness: patient oriented x3 HEENT: Other: Unremarkable Head: Yes normal to inspection Neck: Neck: Yes normal visual inspection Chest: Chest palpation & inspection: normal inspection of the chest Resp: Auscultation: clear to auscultation bilaterally Cardio: Palpation: normal PMI Heart sounds: S1 normal heart sound present, S2 normal heart sound present, no gallops, no murmurs and no rubs GI: Palpation (GI): Soft to palpation Back/Spine/Pelvis: Other: unremarkable Skin: General skin exam: no rashes or lesions noted Neuro: General: patient oriented x3 Extrem: General: Yes normal to inspection Psych: Mental Status: mental status grossly normal Objective Labs and Meds 05/19/23 01:13 05/19/23 05:17 Lab results: Laboratory Results - last 24 hr 05/19/23 05/19/23 05/19/23 01:13 01:14 02:35 WBC 10.4 RBC 3.97 L Hgb 12.8 L Hct 35.3 L MCV 88.9 MCH 32.2 MCHC 36.3 H RDW 12.9 Plt Count 141 L MPV 10.3 Immature Gran % (Auto) 0.4 Neut % (Auto) 65.5 Lymph % (Auto) 22.8 Dukes % (Auto) 10.9 Eos % (Auto) 0.1 Baso % (Auto) 0.3 Lymph # (Auto) 2.4 Dukes # (Auto) 1.1 Eos # (Auto) 0.0 Baso # (Auto) 0.0 Abs Immat Gran (auto) 0.04 H Absolute Neuts (auto) 6.8 Absolute Nucleated RBC 0.000 Nucleated RBC % (auto) 0.0 PT 15.5 H INR 1.3 H Sodium 143 Potassium 2.5 L* Chloride 103 Carbon Dioxide 29 Anion Gap 14 BUN 10 Creatinine 1.24 Estim Creat Clear Calc 64.2 Estimated GFR 57 POC Glucose 126 H Random Glucose 50 L* Lactic Acid 0.9 Calcium 8.8 Magnesium 1.7 Total Bilirubin 0.9 AST 22 ALT 23 Alkaline Phosphatase 99 Troponin I High Sens 89.3 H D C-Reactive Protein Total Protein 6.5 Albumin 3.4 L Urine Color Urine Appearance Urine pH Ur Specific Bryan Urine Protein Urine Glucose (UA) Urine Ketones Urine Blood Urine Nitrite Ur Leukocyte Esterase Urine RBC Urine WBC Ur Squamous Epith Cells Urine Bacteria Hyaline Casts COVID-19 ([facility]) Negative COVID-19 Clin Com See Note Influenza Type A (CB) Negative Influenza Type B (CB) Negative Influenza A & B Note See Note 05/19/23 05/19/23 05/19/23 03:12 04:03 05:17 WBC RBC Hgb Hct MCV MCH MCHC RDW Plt Count MPV Immature Gran % (Auto) Neut % (Auto) Lymph % (Auto) Dukes % (Auto) Eos % (Auto) Baso % (Auto) Lymph # (Auto) Dukes # (Auto) Eos # (Auto) Baso # (Auto) Abs Immat Gran (auto) Absolute Neuts (auto) Absolute Nucleated RBC Nucleated RBC % (auto) PT INR Sodium 140 Potassium 2.8 L* Chloride 102 Carbon Dioxide 26 Anion Gap 15 BUN 12 Creatinine 1.47 H Estim Creat Clear Calc 54.2 Estimated GFR 47 POC Glucose 251 H Random Glucose 241 H Lactic Acid Calcium 8.3 L Magnesium Total Bilirubin 0.9 AST 21 ALT 21 Alkaline Phosphatase 93 Troponin I High Sens 73.4 H C-Reactive Protein 11.57 H Total Protein 5.9 L Albumin 3.0 L Urine Color Urine Appearance Urine pH Ur Specific Bryan Urine Protein Urine Glucose (UA) Urine Ketones Urine Blood Urine Nitrite Ur Leukocyte Esterase Urine RBC Urine WBC Ur Squamous Epith Cells Urine Bacteria Hyaline Casts COVID-19 ([facility]) COVID-19 Clin Com Influenza Type A (CB) Influenza Type B (CB) Influenza A & B Note 05/19/23 05/19/23 07:22 08:55 WBC RBC Hgb Hct MCV MCH MCHC RDW Plt Count MPV Immature Gran % (Auto) Neut % (Auto) Lymph % (Auto) Dukes % (Auto) Eos % (Auto) Baso % (Auto) Lymph # (Auto) Dukes # (Auto) Eos # (Auto) Baso # (Auto) Abs Immat Gran (auto) Absolute Neuts (auto) Absolute Nucleated RBC Nucleated RBC % (auto) PT INR Sodium Potassium Chloride Carbon Dioxide Anion Gap BUN Creatinine Estim Creat Clear Calc Estimated GFR POC Glucose 182 H Random Glucose Lactic Acid Calcium Magnesium Total Bilirubin AST ALT Alkaline Phosphatase Troponin I High Sens C-Reactive Protein Total Protein Albumin Urine Color Yellow Urine Appearance Clear Urine pH 5.5 Ur Specific Bryan >= 1.030 H Urine Protein 100 (2+) H Urine Glucose (UA) >=1000 H Urine Ketones Trace Urine Blood Negative Urine Nitrite Negative Ur Leukocyte Esterase Negative Urine RBC 0-2 Urine WBC 0-5 Ur Squamous Epith Cells 0-2 Urine Bacteria None Seen Hyaline Casts 0-2 COVID-19 ([facility]) COVID-19 Clin Com Influenza Type A (CB) Influenza Type B (CB) Influenza A & B Note ECG Interpretation: The most recent EKG, underlying rhythm is sinus at 82/Min; ST depression in the anterolateral leads. In the EKG prior to that, similar. This is different from prior EKG from last December. Imaging Radiologist's impression: Impressions Cervical Spine CT 05/19/23 02:21 IMPRESSION: 1. No CT evidence of acute intracranial injury. 2. 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 3. Stable complete hyperdense opacification of the right maxillary sinus with sclerotic wall thickening. Redemonstrated 1.1 cm polypoid soft tissue in the posterior left nasal cavity that can be correlated with direct inspection. 4. No evidence of acute traumatic injury in the cervical spine. Head CT 05/19/23 02:21 IMPRESSION: 1. No CT evidence of acute intracranial injury. 2. 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 3. Stable complete hyperdense opacification of the right maxillary sinus with sclerotic wall thickening. Redemonstrated 1.1 cm polypoid soft tissue in the posterior left nasal cavity that can be correlated with direct inspection. 4. No evidence of acute traumatic injury in the cervical spine. Chest X-Ray 05/19/23 02:56 IMPRESSION: No acute cardiopulmonary disease. Knee X-Ray 05/19/23 05:25 IMPRESSION: 1. No fracture. 2. Moderate joint effusion. 3. Meniscal calcifications. 4. Minimal knee degenerative change. Assessment and Plan (1) Elevated troponin: Status: Acute (2) Fall: Status: Acute (3) Atherosclerotic cardiovascular disease: Status: Acute (4) History of coronary artery bypass graft: Status: Acute (5) Hypokalemia: Status: Acute Plan Potassium levels are low at 2.5 and 2.8. Even last year, it was low at 3. EKG has ST depression but not clear if it is related to the electrolyte abnormalities as he does not have any clinical chest pain or other cardiac symptoms. Troponins are slightly high which could be from demand. He also has elevated creatinine. Overall, less likely that he had an acute cardiac event. More likely demand related troponins in the setting of elevated creatinine. EKG changes again could be from electrolyte issues. We should correct the potassium and then reassess the EKG. Echocardiogram. We will follow up with you. Discussed with Dr. De Santiago. Procedures Date of Service Date of Service: 05/19/23
--- NOTE | 2023-05-19 10:34 | PM.EVENT ---
Event Note Date of Service: 05/19/23 Event Note: Seen and evaluated this morning Feels better overall K of 2.8, replacement given EKG changes could be related to abnormal electrolytes repeat BMP repeat EKG Cardiology consult PT evaluation Time Spent With Patient Time: Total time managing care of this patient today ____ minutes.
[2023-05-19 10:54] LABS: Anion Gap 11 (12-20); Blood Urea Nitrogen 12 mg/dL (9-16); Calcium 8.6 mg/dL (8.4-10.2); Carbon Dioxide 28 mmol/L (22-29); Chloride 102 mmol/L (96-108); Creatinine Clr Calc Pharmacy 57.7; Estimated Glomerular Filt Rate 50; Glucose Random 191 mg/dL (60-115); Potassium 3.3 mmol/L (3.3-5.1); Sodium 138 mmol/L (135-145)
[2023-05-19] MEDS: Magnesium Sulfate/H2O 2 GM/50 ML PIGGYBACK IV (11:24)
--- NOTE | 2023-05-19 11:27 | PHA.MEDREC ---
Pharmacy Consult ? Medication Reconciliation Pharmacy has completed the medication reconciliation. List sent from [facility] in [place]
[2023-05-19 11:50] LABS: Glucose, Whole Blood 144 mg/dL (60-115)
--- NOTE | 2023-05-19 12:00 | ECG_ITS ---
Test Reason : repeat Blood Pressure : / mmHG Vent. Rate : 067 BPM Atrial Rate : 067 BPM P-R Int : 188 ms QRS Dur : 092 ms QT Int : 432 ms P-R-T Axes : 078 018 071 degrees QTc Int : 456 ms Normal sinus rhythm with sinus arrhythmia Nonspecific ST abnormality Abnormal ECG When compared with ECG of 19-MAY-2023 01:32, Nonspecific ST and T wave abnormality improved Referred By: Aurelio De Santiago Electronically Signed By:BRENDAN LANG
--- NOTE | 2023-05-19 12:21 | MHC.CM.PN ---
Pt lives with his elder sister, whom he takes care of, she has Alzheimer's. He has a HCP, which names his son Thiago, and niece, Emma, copy to be obtained from [facility]. He has home care services from [facility] of someone to come once every 2 weeks to set up his medication, which he said is going to switch over to [facility] who provides this. He has a cane and a walker. He was in hospital 2 weeks ago, has surgery on his hand, and then had an episode of syncope. PCP is Roberto Ron at the [facility] in [place]. Niece to transport home upon DC. CM to follow and assist with DC plan.
[2023-05-19 16:29] LABS: Glucose, Whole Blood 136 mg/dL (60-115)
[2023-05-19 20:22] LABS: Glucose, Whole Blood 157 mg/dL (60-115)
[2023-05-19] MEDS: Divalproex Sodium ER 250 MG TAB.ER.24H PO (20:57)
[2023-05-19] MEDS: KCl 40 mEq in 0.9 % Sodium Chl 40 MEQ/1,000 ML IV.SOLN 125 MEQ IVCONT (20:57)
[2023-05-19] MEDS: Acetaminophen 325 MG TABLET 650 MG PO (20:57)
[2023-05-19] MEDS: oxyCODONE HCl Immed Release 5 MG TABLET PO (23:36)
[2023-05-20] VITALS (8 sets, daily range): BP systolic 127–175; BP diastolic 61–80; PULSE 52–77; RESP 18–20; TEMP 36.2–37.1; O2SAT 95–97
[2023-05-20] MEDS: oxyCODONE HCl Immed Release 5 MG TABLET PO ×3 (03:10→20:36)
[2023-05-20] MEDS: KCl 40 mEq in 0.9 % Sodium Chl 40 MEQ/1,000 ML IV.SOLN 125 MEQ IVCONT (04:17)
[2023-05-20] MEDS: Acetaminophen 325 MG TABLET 650 MG PO ×2 (06:33→20:36)
[2023-05-20 07:18] LABS: Glucose, Whole Blood 59 mg/dL (60-115)
[2023-05-20 07:34] LABS: Anion Gap 12 (12-20); Blood Urea Nitrogen 13 mg/dL (9-16); Calcium 8.2 mg/dL (8.4-10.2); Carbon Dioxide 25 mmol/L (22-29); Chloride 110 mmol/L (96-108); Creatinine Clr Calc Pharmacy 89.5; Estimated Glomerular Filt Rate > 60; Glucose Random 56 mg/dL (60-115); Potassium 3.6 mmol/L (3.3-5.1); Sodium 143 mmol/L (135-145)
[2023-05-20 07:36] LABS: Glucose, Whole Blood 72 mg/dL (60-115)
[2023-05-20] MEDS: clonazePAM 0.5 MG TABLET PO (09:08)
[2023-05-20] MEDS: Atorvastatin Calcium 10 MG TABLET PO (09:08)
[2023-05-20] MEDS: buPROPion HCl XL 150 MG TAB.ER.24H PO (09:08)
[2023-05-20] MEDS: Aspirin Enteric Coated 81 MG TABLET.DR PO (09:08)
[2023-05-20] MEDS: Fludrocortisone Acetate 0.1 MG TABLET PO (09:08)
[2023-05-20] MEDS: Heparin Sodium,Porcine 5,000 UNIT/ML VIAL 5000 UNIT SUBCUT ×2 (09:09→17:01)
[2023-05-20 11:11] LABS: Glucose, Whole Blood 110 mg/dL (60-115)
--- NOTE | 2023-05-20 11:31 | PM.PNCARD ---
Subjective Subjective Date of Service: 05/20/23 Interval history: Patient states he is feeling fine. He does not have really any cardiac symptoms like chest pain. Review of Systems Review of Systems Yes all other systems are reviewed and are negative Constitutional: Reports as per HPI and Reports no additional constitutional complaints Eyes: Reports as per HPI and Denies no additional eye complaints Denies system reviewed and no additional complaints, except as documented and Reports as per HPI Cardiovascular: Reports as per HPI, Reports no additional cardiovascular complaints, Denies acrocyanosis, Denies cool extremities, Denies chest pain, Denies leg edema, Denies lightheadedness, Denies palpitations and Denies dyspnea Respiratory: Reports as per HPI, Denies no additional respiratory complaints and Denies dyspnea Gastrointestinal: Reports as per HPI and Denies no additional gastrointestinal complaints Genitourinary: Reports no additional male genitourinary complaints and Reports as per HPI Musculoskeletal: Reports no additional musculoskeletal complaints and Reports as per HPI Skin/Breast: Reports system reviewed and no additional complaints, except as docu Reports system reviewed and no additional complaints, except as documented and Reports as per HPI Psychiatric: Reports no additional psychiatric complaints and Reports as per HPI Endocrine: Reports no additional endocrine complaints, Reports as per HPI and Denies palpitations Hematologic/Lymphatic: Reports no additional hematologic/lymphatic complaints and Reports as per HPI Allergic/Immunologic: Reports no additional allergic/immunologic complaints and Reports as per HPI Physical Exam Vital Signs: Last Vital Signs Temp 98.1 F 05/20/23 08:00 Pulse 74 05/20/23 09:18 Resp 18 05/20/23 08:00 BP 151/69 H 05/20/23 09:18 Pulse Ox 96 05/20/23 09:18 O2 Del Method Room Air 05/20/23 08:00 BMI result Body Mass Index 30.2 Const General: comfortable and no acute distress Orientation/consciousness: patient oriented x3 HEENT Other: Unremarkable Head: Yes normal to inspection Neck Neck: Yes normal visual inspection Chest Chest palpation & inspection: normal inspection of the chest Resp Auscultation: clear to auscultation bilaterally Cardio Palpation: normal PMI Heart sounds: S1 normal heart sound present, S2 normal heart sound present, no gallops, no murmurs and no rubs GI Palpation (GI): Soft to palpation Back/Spine/Pelvis Other: unremarkable Skin General skin exam: no rashes or lesions noted Neuro General: patient oriented x3 Extrem General: Yes normal to inspection Psych Mental Status: mental status grossly normal Objective Labs and Meds 05/19/23 01:13 05/20/23 06:49 Lab results: Laboratory Results - last 24 hr 05/19/23 05/19/23 05/19/23 11:45 16:25 20:17 Hold Purple Top Sodium Potassium Chloride Carbon Dioxide Anion Gap BUN Creatinine Estim Creat Clear Calc Estimated GFR POC Glucose 144 H 136 H 157 H Random Glucose Calcium 05/20/23 05/20/23 05/20/23 06:49 07:15 07:32 Hold Purple Top SEE NOTE Sodium 143 Potassium 3.6 Chloride 110 H Carbon Dioxide 25 Anion Gap 12 BUN 13 Creatinine 0.89 Estim Creat Clear Calc 89.5 Estimated GFR > 60 POC Glucose 59 L* 72 Random Glucose 56 L* Calcium 8.2 L 05/20/23 11:02 Hold Purple Top Sodium Potassium Chloride Carbon Dioxide Anion Gap BUN Creatinine Estim Creat Clear Calc Estimated GFR POC Glucose 110 Random Glucose Calcium Progress Note: A&P Assessment and plan (1) Elevated troponin: Status: Acute (2) Fall: Status: Acute (3) Atherosclerotic cardiovascular disease: Status: Acute (4) History of coronary artery bypass graft: Status: Acute (5) Hypokalemia: Status: Acute Plan Suspect EKG changes or primarily related to hypokalemia as after the potassium is corrected, the EKG also normalized. Echo shows wall motion abnormality which is likely related to his history of coronary disease and bypass surgery. Doubt if it is acute. Also slight troponin leak but no chest pain and which is suspected from demand. Overall, remote history of coronary disease/CABG and demand related troponin leak and EKG changes related to hypokalemia. He is on aspirin, statins at home and that may be continued. Hypokalemia in turn may be related to fludrocortisone which is being given for orthostatic hypotension. If no clear concerns for that, may just stop it. Blood pressure actually seems high. Discussed with Dr. De Santiago. Time Spent With Patient Time: Total time managing care of this patient today ____ minutes. Progress Note: Quality Stroke Does the patient have a stroke diagnosis?: No Procedures Date of Service Date of Service: 05/20/23
--- NOTE | 2023-05-20 12:04 | MHC.CM.PN ---
CM met with pt to see if he is willing to go to [facility] per PT rec. He said that he is, [facility] accepted and [facility].
--- NOTE | 2023-05-20 12:45 | P.PNIM_ITS ---
Subjective Subjective Date of Service: 05/20/23 Interval History: Seen and evaluated this joshua Denies any chest pain potassium stable Review of Systems Review of Systems: Yes all other systems are reviewed and are negative Physical Exam 2 Vital Signs: Vital Signs: Last Vital Signs Temp 97.9 F 05/20/23 11:51 Pulse 52 05/20/23 11:51 Resp 20 05/20/23 11:51 BP 127/80 05/20/23 11:51 Pulse Ox 96 05/20/23 11:51 O2 Del Method Room Air 05/20/23 11:51 BMI result Body Mass Index 30.2 Const: Other: Constitutional : Awake, interactive, not in distress Neck : Normal inspection, Supple Cardiovascular : RRR, no JVP, no lower extremity edema Respiratory : good bilateral air entry, no crackles, wheezes or rhonchi Gastrointestinal: soft, lax, Normal bowel sounds, Non tender Skin : Warm, Dry Neurological : Alert & oriented x3, No focal deficit Objective Data Active Medications Acetaminophen (Acetaminophen 325 Mg Tablet) 650 mg PO Q6H PRN PRN Reason: Headache Last Admin: 05/20/23 06:33 Dose: 650 mg Documented By: RJ Aspirin (Aspirin Enteric Coated 81 Mg Tablet.Dr) 81 mg PO DAILY [facility] Last Admin: 05/20/23 09:08 Dose: 81 mg Documented By: DAMON Atorvastatin Calcium (Atorvastatin Calcium 10 Mg Tablet) 10 mg PO DAILY [facility] Last Admin: 05/20/23 09:08 Dose: 10 mg Documented By: DAMON Bupropion HCl (Bupropion Hcl Xl 150 Mg Tab.Er.24h) 150 mg PO DAILY [facility] Last Admin: 05/20/23 09:08 Dose: 150 mg Documented By: DAMON Clonazepam (Clonazepam 0.5 Mg Tablet) 0.5 mg PO DAILY [facility] Last Admin: 05/20/23 09:08 Dose: 0.5 mg Documented By: DAMON Dextrose (Dextrose 50 % 25 Gm/50 Ml Syringe) 25 gm IVPUSH Q15M PRN; Protocol PRN Reason: per Hypoglycemia Standing Ord. Divalproex Sodium (Divalproex Sodium Er 250 Mg Tab.Er.24h) 250 mg PO BEDTIME [facility] Last Admin: 05/19/23 20:57 Dose: 250 mg Documented By: TONI Empagliflozin (Empagliflozin 25 Mg Tablet) 25 mg PO DAILY [facility] Last Admin: 05/20/23 08:54 Dose: Not Given Documented By: DAMON Non-Admin Reason: BG 59 this am Fludrocortisone Acetate (Fludrocortisone Acetate 0.1 Mg Tablet) 0.1 mg PO BID [facility] Last Admin: 05/20/23 09:08 Dose: 0.1 mg Documented By: DAMON Glucose (Glucose Gel 15 Gm Gel..Gram.) 15 gm PO Q15M PRN; Protocol PRN Reason: per Hypoglycemia Standing Ord. Heparin Sodium (Porcine) (Heparin Sodium,Porcine 5,000 Unit/Ml Vial) 5,000 unit SUBCUT Q8H [facility] Last Admin: 05/20/23 09:09 Dose: 5,000 unit Documented By: DAMON Insulin Human Lispro (Insulin Lispro 100 Unit/Ml 3 Ml Vial) 0 unit SUBCUT QIDACHS [facility]; Protocol Last Admin: 05/20/23 11:59 Dose: Not Given Documented By: DAMON Non-Admin Reason: No Insulin Coverage Midodrine (Midodrine Hcl 2.5 Mg Tablet) 2.5 mg PO TID [facility] Last Admin: 05/20/23 08:53 Dose: Not Given Documented By: DAMON Non-Admin Reason: systolic BP 151 Oxycodone HCl (Oxycodone Hcl Immed Release 5 Mg Tablet) 5 mg PO Q4H PRN PRN Reason: Pain, Moderate(Pain Scale 4-6) Last Admin: 05/20/23 06:33 Dose: 5 mg Documented By: RJ Sodium Chloride (0.9 % Sodium Chloride Flush 3 Ml Syringe) 3 ml IVFLUSH QSHIFT [facility] Last Admin: 05/20/23 08:55 Dose: Not Given Documented By: DAMON Non-Admin Reason: IV Running Labs 05/19/23 01:13 05/20/23 06:49 Labs: Laboratory Results - last 24 hr 05/19/23 05/19/23 05/20/23 16:25 20:17 06:49 Hold Purple Top SEE NOTE Anion Gap 12 Estim Creat Clear Calc 89.5 Estimated GFR > 60 POC Glucose 136 H 157 H Random Glucose 56 L* Calcium 8.2 L 05/20/23 05/20/2324 07:15 07:32 11:02 Hold Purple Top Anion Gap Estim Creat Clear Calc Estimated GFR POC Glucose 59 L* 72 110 Random Glucose Calcium Microbiology Microbiology Results: Microbiology 05/19/23 01:39 Blood Culture - Preliminary Blood - Venous No growth after 24 hours. 05/19/23 01:13 Blood Culture - Preliminary Blood - Venous No growth after 24 hours. Assessment and Plan (1) Hypokalemia: Status: Acute (2) Fall: Status: Acute Plan Adair Rivera is a 72 years old man admitted with: Acute Hypokalemia, resolved with replacement DC Fludricortisone as likely causing agent monitor potassium level. Fever No leukocytosis. lactic acidosis. no recurrence of fever while inpatient Blood cultures pending Tick bone disease panel pending Right knee effusion. Ortho: likely arthritis, no evidence of infection Elevated troponin. EKG showed nonspecific ST and T-waves inferolaterally. Patient denied chest pain. Aspirin. Continue to monitor troponin. Fall. PT rec SNF Type 2 diabetes mellitus with hypoglycemia Insulin sliding scale. Lantus 30 units daily Orthostatic hypotension Continue midodrine and DC fludrocortisone. Hyperlipidemia. Continue statin. Depression and anxiety. Continue home meds. DVT prophylaxis: Heparin subQ Code status: Full. Patient really hospitalization overnight pending final cultures and safe discharge plan Quality Stroke Does the patient have a stroke diagnosis?: No VTE Prior VTE?: No VTE Risk Level:: Medical - moderate - high VTE Device Contraindication: Treatment Not Indicated VTE Drug Contraindication: N/A - Med Ordered
--- NOTE | 2023-05-20 13:11 | MHC.CM.PN ---
HCP requested from [facility] via fax: [phone].
[2023-05-20 16:42] LABS: Glucose, Whole Blood 131 mg/dL (60-115)
[2023-05-20] MEDS: 0.9 % Sodium Chloride Flush 3 ML SYRINGE IVFLUSH (17:02)
[2023-05-20 19:29] LABS: A. Phagocytphilium DNA,RT-PCR NOT DETECTED (NOT DETECTED); Babesia Microti DNA, RT-PCR NOT DETECTED (NOT DETECTED); Borrelia Miyamotoi,DNA RT-PCR NOT DETECTED (NOT DETECTED); E.Chaffeensis DNA RT-PCR NOT DETECTED (NOT DETECTED); Lyme(Borrelia ssp)DNA RT-PCR NOT DETECTED (NOT DETECTED)
[2023-05-20] MEDS: Divalproex Sodium ER 250 MG TAB.ER.24H PO (20:36)
[2023-05-20 21:12] LABS: Glucose, Whole Blood 137 mg/dL (60-115)
[2023-05-21] MEDS: 0.9 % Sodium Chloride Flush 3 ML SYRINGE IVFLUSH ×2 (01:10→08:32)
[2023-05-21] MEDS: Heparin Sodium,Porcine 5,000 UNIT/ML VIAL 5000 UNIT SUBCUT ×2 (01:10→08:32)
[2023-05-21 03:45] VITALS: BP 132/62; PULSE 68; RESP 18; TEMP 36.7; O2SAT 97
[2023-05-21 07:33] VITALS: BP 158/68; PULSE 68; RESP 18; TEMP 36.7; O2SAT 98
[2023-05-21 07:47] LABS: Glucose, Whole Blood 100 mg/dL (60-115)
[2023-05-21] MEDS: buPROPion HCl XL 150 MG TAB.ER.24H PO (08:31)
[2023-05-21] MEDS: Acetaminophen 325 MG TABLET 650 MG PO (08:31)
[2023-05-21] MEDS: clonazePAM 0.5 MG TABLET PO (08:31)
[2023-05-21] MEDS: Empagliflozin 25 MG TABLET PO (08:31)
[2023-05-21] MEDS: Aspirin Enteric Coated 81 MG TABLET.DR PO (08:31)
[2023-05-21] MEDS: Atorvastatin Calcium 10 MG TABLET PO (08:32)
[2023-05-21 11:16] LABS: Glucose, Whole Blood 105 mg/dL (60-115)
[2023-05-21 11:20] VITALS: BP 180/81; PULSE 71; RESP 18; TEMP 36.4; O2SAT 97
[2023-05-21 12:18] VITALS: BP 184/76; PULSE 72
--- NOTE | 2023-05-21 12:38 | P.DS_ITS ---
DS: Providers Provider Date of Service: 05/21/23 Date of admission: 05/19/23 03:41 Primary care physician: Roberto Langley MD Consults: 05/19/23 07:11 Consult to Orthopedics Routine Consulting Provider: [facility] Reason for consultation: Right knee effusion Has provider been notified: No 05/19/23 07:43 Consult to Cardiology Routine Consulting Provider: [facility] Cardiovascular Services Reason for consultation: Elevated troponin. Has provider been notified: No DS: Diagnosis Discharge Diagnosis (1) Hypokalemia: Status: Acute (2) Fall: Status: Acute (3) Elevated troponin: Status: Acute (4) Acute kidney injury: Status: Acute (5) Hypoglycemia: Status: Acute DS: Summary Hospital Course Hospital Course: Admission note HPI Adair Rivera is a 72 years old man with past medical history significant for hyperlipidemia, hypertension and type 2 diabetes mellitus presents to the emergency department after he sustained a fall open getting proposed chart to go to bed. He hit his head and complains of right leg weakness and pain. He also complained of right shoulder pain. He denied any dizziness, loss of consciousness or palpitations. He also denied fever or chills. He also tried any chest pain, shortness on breath or cough. He denied vomiting or diarrhea. He denies any gastrointestinal or genitourinary symptoms. Denies history of alcohol abuse, tobacco smoking or illicit drug use. Patient is not sure if he uses diuretics. Patient is a vague historian and was unable to recall the names of his medications. In the ED, he was found to have fever of 101.1. The rest of his vital signs are normal. Blood workup is remarkable for significant hypokalemia of 2.5. His creatinine is elevated at 1.47. He has hyperglycemia. There is mild thrombocytopenia. LFTs are normal. C-reactive protein is mildly elevated at 11.7. CXR is negative. Head CT scan showed no acute intracranial abnormality. C-spine CT scan showed no fracture or dislocations. Right knee x-ray showed no fracture, meniscal calcifications and moderate joint effusions. ED tx: Acetaminophen 975 mg PO, Zosyn 3.325 g IV, potassium 60 mEq PO, KCl 40 mg mEq IV. Hospital course # Acute Hypokalemia, resolved with replacement. Likely a result of using Fludricortisone that was discontinued. discussed with dr Manzano from nephrology who will follow in the office. to repeat blood test next week. # Fever on presentation. No leukocytosis. lactic acidosis. no recurrence of fever while inpatient as he was off antibiotics. Blood cultures negative. Tick bone disease panel negative. # Right knee effusion. Orthopedic team was consulted and they thought it is likely arthritis, no evidence of infection. symptomatic management. # Elevated troponin. EKG showed nonspecific ST and T-waves inferolaterally. Patient denied chest pain. EKG was repeated after correcting potassium and the T-wave inversions resolved. seen by livestock sales representative who recommended continue ASA. # Fall. Seen by PT who recommended SNF placement # Orthostatic hypotension Noted to have significantly elevated BP readings. DC fludrocortisone for the side effect of hypokalemia. He continued to have high BP readings even while holding the Midodrine too. To hold Midodrine on discharge until he sees Nephrology and monitor BP readings for the next week. Start potassium supplement until you repeat blood work and follow with nephrology Stop Fludricortisone for now Hold Midodrine, restart it if blood pressure readings start to go low. discuss with primary. Follow with nephrology as outpatient Continue physical therapy Time Attestation Discharge coordination time: Greater than 30 minutes Quality: Safe Use of Opioids Does Pt have an Active Cancer Diagnosis on the Problem List?: No Quality: Stroke Does the patient have a stroke diagnosis?: No Physical Exam Vital Signs: Vital Signs: Last Vital Signs Temp 97.6 F 05/21/23 11:20 Pulse 72 05/21/23 12:18 Resp 18 05/21/23 11:20 BP 184/76 H 05/21/23 12:18 Pulse Ox 97 05/21/23 11:20 O2 Del Method Room Air 05/21/23 11:20 BMI result Body Mass Index 30.2 Const: Other: Constitutional : Awake, interactive, not in distress Neck : Normal inspection, Supple Cardiovascular : RRR, no JVP, no lower extremity edema Respiratory : good bilateral air entry, no crackles, wheezes or rhonchi Gastrointestinal: soft, lax, Normal bowel sounds, Non tender Skin : Warm, Dry Neurological : Alert & oriented x3, No focal deficit DS: Data Data Completed and Pending Labs on day of discharge: Laboratory Results - last 24 hr 05/19/23 05/20/23 05/20/23 01:13 16:38 21:07 POC Glucose 131 H 137 H A.phagocytophil DNA PCR NOT DETECTED Babesia microti DNA PCR NOT DETECTED Borrelia sp DNA (PCR) NOT DETECTED Borrelia miyamotoi (PCR) NOT DETECTED E.chaffeensis DNA (PCR) NOT DETECTED Tick-borne Disease PCR SEE NOTE 05/21/23 05/21/23 07:38 11:10 POC Glucose 100 105 A.phagocytophil DNA PCR Babesia microti DNA PCR Borrelia sp DNA (PCR) Borrelia miyamotoi (PCR) E.chaffeensis DNA (PCR) Tick-borne Disease PCR Preliminary micro results at discharge 05/19/23 01:39 Blood Culture - Preliminary Blood - Venous No growth after 48 hours. 05/19/23 01:13 Blood Culture - Preliminary Blood - Venous No growth after 48 hours. Imaging Chest x-ray: Radiologist's impression: ITS Impressions Cervical Spine CT 05/19/23 02:21 IMPRESSION: 1. No CT evidence of acute intracranial injury. 2. 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 3. Stable complete hyperdense opacification of the right maxillary sinus with sclerotic wall thickening. Redemonstrated 1.1 cm polypoid soft tissue in the posterior left nasal cavity that can be correlated with direct inspection. 4. No evidence of acute traumatic injury in the cervical spine. Head CT 05/19/23 02:21 IMPRESSION: 1. No CT evidence of acute intracranial injury. 2. 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 3. Stable complete hyperdense opacification of the right maxillary sinus with sclerotic wall thickening. Redemonstrated 1.1 cm polypoid soft tissue in the posterior left nasal cavity that can be correlated with direct inspection. 4. No evidence of acute traumatic injury in the cervical spine. Chest X-Ray 05/19/23 02:56 IMPRESSION: No acute cardiopulmonary disease. Knee X-Ray 05/19/23 05:25 IMPRESSION: 1. No fracture. 2. Moderate joint effusion. 3. Meniscal calcifications. 4. Minimal knee degenerative change. Discharge Plan Discharge Anticipated Discharge Date/Time: 05/20/23 14:47 Patient Disposition: [facility] Discharge Diagnosis: Fall, Low potassium, kidney injury Referrals: Roberto Langley MD [Primary Care Provider] - 1 Week Discharge Medications: New potassium chloride 20 mEq packet 20 meq PO DAILY Qty: 14 0RF Continued clonazepam 0.5 mg tablet 0.5 mg PO DAILY bupropion HCl 150 mg tablet sustained-release 12 hr 150 mg PO DAILY atorvastatin 20 mg tablet 10 mg PO DAILY sertraline 100 mg tablet 100 mg PO DAILY divalproex 250 mg tablet extended release 24 hr 250 mg PO BEDTIME glucose 4 gram Tablet,Chewable 4 g PO DAILY PRN (Reason: Hypoglycemia) oxycodone 5 mg Tablet 5 mg PO Q4H PRN (Reason: Pain) cholecalciferol (vitamin D3) 25 mcg (1,000 unit) Tablet 25 mcg PO DAILY insulin glargine 100 unit/mL (3 mL) Insulin Pen 40 unit SUBCUT DAILY niacin 750 mg Tablet Extended Release 1,500 mg PO BEDTIME PreserVision AREDS-2 250-90-40-1 mg Capsule 1 tab PO BIDWM empagliflozin 25 mg Tablet 25 mg PO DAILY Ozempic 2 mg/dose (8 mg/3 mL) Pen Injector 2 mg SUBCUT [place] aspirin 81 mg Tablet,Delayed Release (Dr/Ec) 81 mg PO DAILY Held midodrine 2.5 mg tablet 2.5 mg PO TID Hold Instructions: Hold for next week and monitor blood pressure and dizziness incidents fludrocortisone 0.1 mg tablet 0.1 mg PO BID Hold Instructions: Hold until you follow with kidney specialist Discharge Orders: Discharge Order (Routine); Ordered 05/21/23 Ordered By: Aurelio De Santiago Diet: Advance to usual diet Activity on Discharge: As tolerated Stand Alone Forms: Patient Portal Discharge page Other Ambulatory Orders: Basic Metabolic Panel (Routine) Timeframe: 1 Week Facility: [facility] - Location: Laboratory Ordered By: Aurelio De Santiago Care Plan Goals: Read below Health Concerns: Read below Plan of Treatment: Read below Assessment: You were admitted to the hospital after sustaining a fall. blood work showed low potassium level that was corrected. Fludricortison likely responsiple for this drop, it was held until you see your kidney doctor. Start potassium supplement until you repeat blood work and follow with nephrology Stop Fludricortisone for now Hold Midodrine, restart it if blood pressure readings start to go low. discuss with primary. Follow with nephrology as outpatient Continue physical therapy
[2023-05-21 12:39] LABS: Influenza A PCR NEGATIVE (Negative); Influenza B PCR NEGATIVE (Negative); Resp Syncy Virus RNA Qual PCR NEGATIVE (Negative); SARS COV2 PCR INHOUSE NEGATIVE (Negative)
[2023-05-21 13:02] VITALS: BP 148/65; PULSE 75
--- NOTE | 2023-05-21 13:46 | MHC.CM.PN ---
[facility] auth obtained, and pt is medically cleared for D/C to [facility]. [facility] CM called the [facility] to [facility], they have booked a BLS for 2:30pm today. Pt aware.
== END 2023-05-21 14:49 | disposition skilled nursing facility (03) | DRG 641 ==
LOC: HO.ED 05-19 03:14 → HO.EDOVER 05-19 03:49 → HO.IMC 05-19 15:22
PROVIDERS: Student in an Organized Health Care Education/Training Program; Admitting Provider Internal Medicine; Emergency Provider Emergency Medicine; PCP Internal Medicine; Referring Provider Internal Medicine; Visit Provider Student in an Organized Health Care Education/Training Program
DX: E87.6 Hypokalemia (principal); E27.40 Unspecified adrenocortical insufficiency; N17.9 Acute kidney failure, unspecified; I25.10 Atherosclerotic heart disease of native coronary artery without angina pectoris; T50.0X5A Adverse effect of mineralocorticoids and their antagonists, initial encounter; E11.649 Type 2 diabetes mellitus with hypoglycemia without coma; M17.11 Unilateral primary osteoarthritis, right knee; I95.1 Orthostatic hypotension; F41.9 Anxiety disorder, unspecified; F32.A Depression, unspecified; E78.5 Hyperlipidemia, unspecified; I10 Essential (primary) hypertension; D69.6 Thrombocytopenia, unspecified; Z20.822 Contact with and (suspected) exposure to COVID-19; Z95.1 Presence of aortocoronary bypass graft; Z87.891 Personal history of nicotine dependence; Z79.4 Long term (current) use of insulin; Z79.82 Long term (current) use of aspirin; Z79.899 Other long term (current) drug therapy
CPT/HCPCS: 0241U; 36415; 70450; 71045; 72125; 73564; 80048; 80053; 81001; 82947; 83605; 83735; 84484; 85025; 85610; 86140; 87040; 87468; 87469; 87478; 87484; 87502; 87635; 87798; 93005; 93306; 93356; 97116; 97162; 99285; J1644; J2543; J3475; J3480; Q9957

== ENCOUNTER → 2023-05-19 03:41 | Outpatient (BNV) | payer OTHER, SELFPAY | PROVIDERS: Admitting Provider Internal Medicine; Emergency Provider Emergency Medicine; PCP Internal Medicine; Visit Provider Internal Medicine | DX: R79.89 Other specified abnormal findings of blood chemistry (principal); W19.XXXA Unspecified fall, initial encounter; I25.10 Atherosclerotic heart disease of native coronary artery without angina pectoris; Z95.1 Presence of aortocoronary bypass graft; E87.6 Hypokalemia; R94.31 Abnormal electrocardiogram [ECG] [EKG] | CPT/HCPCS: 93010; 93306; 99223; 99232 ==

== ENCOUNTER → 2023-05-19 03:41 | Outpatient (BNV) | payer OTHER, SELFPAY | PROVIDERS: Admitting Provider Internal Medicine; Emergency Provider Emergency Medicine; PCP Internal Medicine; Visit Provider Internal Medicine | DX: E11.65 Type 2 diabetes mellitus with hyperglycemia (principal); E87.6 Hypokalemia; R79.89 Other specified abnormal findings of blood chemistry; R50.9 Fever, unspecified; S43.109A Unspecified dislocation of unspecified acromioclavicular joint, initial encounter; E78.5 Hyperlipidemia, unspecified | CPT/HCPCS: 99223; 99232; 99239; 99499 ==

== ENCOUNTER → 2023-05-19 03:41 | Outpatient (BNV) | payer OTHER, SELFPAY | PROVIDERS: Admitting Provider Internal Medicine; Emergency Provider Emergency Medicine; PCP Internal Medicine; Visit Provider Physician Assistant | DX: M17.11 Unilateral primary osteoarthritis, right knee (principal) | CPT/HCPCS: 99221 ==